=== PATIENT | male | born 1950 | race African-American/Black ===

== ENCOUNTER 2018-06-28 19:34 | Inpatient (IN) | payer MEDICARE ==
[2018-06-28 20:31] LABS: Actual Bicarbonate (HCO3a) 32.9 mEq/L (22-28); Analyzer IN Cardio ER; Base Excess (BEa) 3.6 mEq/L (-2.0 to +3.0); Calcium, Ionized 1.18 mmol/L (1.12-1.30); Carboxyhemoglobin (COHb) 1.7 gm% (0.0-3.0); Hemoglobin (Hb) 9.8 g/dL (14.0-18.0); Potassium - ABG Lab 4.88 mmol/L (3.70-5.30)
[2018-06-28 20:33] LABS: CO2 Tension 83.3 mmHg (35.0-45.0); pH, Arterial 7.22 (7.35-7.45)
[2018-06-28 20:34] LABS: ALV-art Gradient 15.515 (0-20); Puncture Site RRA
[2018-06-28] MEDS ORDERED: cloNIDine 0.1 MG TAB ONE (20:51)
[2018-06-28 21:06] LABS: Troponin I 0.034 ng/mL (< 0.028)
[2018-06-28] MEDS ORDERED: Furosemide 40 MG/4 ML VIAL ONE (21:39)
[2018-06-28] MEDS ORDERED: Ondansetron ODT 4 MG TAB SL PRN (23:26)
[2018-06-28] MEDS ORDERED: Ondansetron PF 4 MG/2 ML Vial IVP PRN (23:26)
[2018-06-28] MEDS ORDERED: Acetaminophen 325 MG TAB PO PRN (23:26)
[2018-06-28 23:36] VITALS: BMI 20.9
[2018-06-29] MEDS ORDERED: Benzonatate 100 MG CAP PO PRN (01:23)
[2018-06-29] MEDS ORDERED: Ondansetron ODT 4 MG TAB PO PRN (01:23)
[2018-06-29] MEDS ORDERED: Ondansetron PF 4 MG/2 ML Vial IVP PRN (01:23)
[2018-06-29] MEDS ORDERED: Dextrose 50% Abboject 50 ML SYRINGE SLOW IVP PRN (01:23)
[2018-06-29] MEDS ORDERED: Diabetic Tussin 200 MG/10 ML UDCUP PO PRN (01:23)
[2018-06-29] MEDS ORDERED: HumaLOG 300 UNITS/3 ML VIAL SC PRN (01:23)
[2018-06-29] MEDS ORDERED: Labetalol HCl 100 MG/20 ML VIAL SLOW IVP PRN (01:23)
[2018-06-29] MEDS ORDERED: hydrALAZINE 20 MG/ML VIAL SLOW IVP PRN (01:23)
[2018-06-29] MEDS ORDERED: Dextrose 5% in Water 1,000 ML IV PRN (01:23)
--- NOTE | 2018-06-29 02:57 | HP ---
PRIMARY CARE PHYSICIAN: . CHIEF COMPLAINT: Altered mental status, having fever and feeling nauseated. HISTORY OF PRESENT ILLNESS: Mr. Palumbo is a 68-year-old gentleman who has a history of COPD, as well as hypertension and diabetes mellitus. He was apparently brought in by family that says that he see med like he was just out of it and was confused. He apparently recently had been treated for pneumon ia. The patient himself says he just got progressively worse. He says that he has been having fever and feeling nauseated and he also endorses having shortness of breath. He said he has had a cough f or the past 5 months, but it just got worse. He says that the cough is productive of clear to someti mes yellow sputum, but no blood. He also denies any chest pain, but does complain of some pain in th e center of his abdomen. He says he has had this for the past month. He says that he has both const ipation and diarrhea. Apparently at some point during the day, he became a bit confused and weak and for this reason, family brought him to the emergency room for evaluation. When he was evaluated in the ER, he was found to be both hypoxic and hypercapnic and acidotic. He had a chest x-ray which gage wed some cardiomegaly and increased pulmonary vascular congestion. He was also hypertensive with the systolics above 190. He was placed on BiPAP and is being admitted to the [facility]. He has received yesika nidine and DuoNebs in the emergency room. REVIEW OF SYSTEMS: All systems are reviewed and are negative except for that mentioned in the histor y of present illness. PAST MEDICAL HISTORY: Significant for chronic respiratory failure secondary to chronic obstructive p ulmonary disease, on home oxygen; chronic respiratory failure secondary to chronic obstructive pulmon bear disease; hypertension; tobacco use; diabetes mellitus; hyperlipidemia, and depression. PAST SURGICAL HISTORY: He has had bilateral above the knee amputations. ALLERGIES: No known drug allergies. SOCIAL HISTORY: He is single. He lives alone. He says he quit smoking a month ago, but prior to at he was smoking a pack a day. He occasionally drinks. He says his niece, Suzan, is the surrogate decision maker and he would like to be a FULL [employer]. FAMILY HISTORY: Significant for diabetes mellitus. MEDICATIONS: As taken from the emergency room records include clonidine 0.2 mg 3 times a day, gabape ntin 400 mg 3 times daily, glipizide, metformin 5/500 twice a day, isosorbide mononitrate 30 mg daily , nifedipine 90 mg daily, potassium chloride 10 mEq daily, Lopressor 25 mg twice a day and duloxetine 60 mg daily. PHYSICAL EXAMINATION: GENERAL: He is alert and oriented to person, place and time. He appears to be in some mild distress due to dyspnea; however, he is currently on BiPAP. He is well-developed and well-nourished. VITAL SIGNS: Blood pressure was 192/84, heart rate 109, respiratory rate of 23, temperature was 98.2 , and O2 sat was 94 on 2 liters. HEENT: Pupils are equal, round, and reactive. Extraocular muscles are intact. His sclerae are anic teric. Throat: There was no erythema, no exudates. NECK: There is no adenopathy, no bruits. LUNGS: He has got some coarse breath sounds bilaterally as well as some faint wheeze and rales at th e base. CARDIOVASCULAR: He had a normal S1, S2. I did not appreciate an S3 or S4. No murmurs, clicks, no r ubs. ABDOMEN: Obese, it is soft. He did have some mild epigastric tenderness. There was no rebound, no guarding, no organomegaly. EXTREMITIES: The stump sites were clear. There was no skin breakdown, no edema. NEUROLOGIC: His cranial nerves II-XII are grossly intact. Muscle strength was intact in the upper e xtremities. SKIN AND INTEGUMENT: There were no skin changes. No rash, no skin breakdown noticeable. LABORATORY DATA: The white blood cell count was 10.0, hemoglobin 9.3, hematocrit is 29.3, platelet c ount was 272. His sodium was 144, potassium 4.9, chloride is 104, CO2 is 30, BUN of 17, creatinine 0 .69, glucose is 81. Troponin was 0.034, natriuretic peptide was 272.3. On his chest x-ray, this is by my reading, he had some mild cardiomegaly, some flattening of the diaphragms and increased pulmona ry vascular markings. EKG also by my reading, he had a right bundle branch block with a heart rate in the 90s. ASSESSMENT AND PLAN: This is a pleasant 68-year-old gentleman that presents to the emergency room wi th an acute metabolic encephalopathy likely with acute on chronic respiratory failure with hypoxemia and hypercapnia. Likely this is multifactorial from a congestive heart failure as well as chronic ob structive pulmonary disease exacerbation. 1. Congestive heart failure exacerbation is unknown type. We will need to continue diuresis as sly rated, bring his blood pressure under control. Check an echocardiogram. 2. Chronic obstructive pulmonary disease exacerbation. Continue DuoNebs and likely place him on an inhaled steroid as well as beta agonist. Pulmonary and Critical Care will be consulted in the a.m. 3. Hypertensive urgency. This could be volume and stress related. We will continue to trend his bl ood pressures. Restart him on his home medications as tolerated as well as p.r.n. medications as nee ded. 4. Diabetes mellitus, type 2. Again, we will continue metformin, glipizide, as well as sliding scal e insulin. 5. Anemia. There are no previous records to compare, this is a normocytic normochromic anemia. We will check iron studies and further recommendations based on these results. 6. The patient will be placed on deep venous thrombosis and gastrointestinal prophylaxis.
[2018-06-29 03:21] LABS: #Lymphocytes 0.8 thou/uL (1.20-3.40); #Monocytes 0.1 thou/uL (0.11-0.59); #Neutrophils 5.5 thou/uL (1.40-6.50); %Eosinophils 0.1 % (0.0-10.0); %Lymphocytes 12.8 % (21.0-51.0); %Monocytes 0.9 % (0.0-10.0); %Neutrophils 86.2 % (42.0-75.0); Hemoglobin 8.9 g/dL (14.0-18.0); Mean Corpuscular HGB CONC 30.3 g/dL (32.0-36.0); Mean Corpuscular Volume 95.6 fL (78.0-98.0); Mean Platelet Volume 7.8 fL (7.4-10.4); Platelet Count 262 thou/uL (130-400); RBC Distribution Width 13.4 % (11.5-14.5); Red Blood Cell (RBC) Count 3.07 mill/uL (4.70-6.10); White Blood Cell (WBC) Count 6.3 thou/uL (4.8-10.8)
[2018-06-29 03:40] LABS: Anion Gap 16 mmol/L (10-20); BUN (Urea Nitrogen) 20 mg/dL (8.4-25.7); Calc. Creatinine Clearance 76 mL/min (70-130); Calcium 9.8 mg/dL (7.8-10.44); Carbon Dioxide 30 mmol/L (23-31); Chloride 100 mmol/L (98-107); Estimated GFR-MDRD Greater than 90; Glucose 111 mg/dL (80-115); Potassium 4.3 mmol/L (3.5-5.1); Sodium 142 mmol/L (136-145)
[2018-06-29 03:41] LABS: Iron 18 ug/dL (65-175); Iron Binding Capacity, Total 288 mcg/dL (261-462)
[2018-06-29 03:45] LABS: Troponin I 0.061 ng/mL (< 0.028)
[2018-06-29] MEDS: Furosemide 40 MG/4 ML VIAL SLOW IVP SCH ×2 (05:33→17:28)
[2018-06-29] MEDS: Acetaminophen 325 MG TAB PO PRN (05:34)
[2018-06-29] MEDS: HumaLOG 300 UNITS/3 ML VIAL SC PRN (06:42)
[2018-06-29 06:46] LABS: Troponin I 0.061 ng/mL (< 0.028)
[2018-06-29] MEDS ORDERED: Cepastat Lozenges 1 LOZ PO PRN (07:30)
[2018-06-29] MEDS ORDERED: Bisacodyl 5 MG TAB PO PRN (07:30)
[2018-06-29] MEDS ORDERED: Senokot S 8.6-50 MG TAB PO PRN (07:30)
[2018-06-29] MEDS ORDERED: Sodium Chloride 0.65% Nasal 44 ML BOT EA NARE PRN (07:30)
[2018-06-29] MEDS ORDERED: Loperamide HCl 2 MG CAP PO PRN (07:30)
[2018-06-29] MEDS ORDERED: Eucerin (Mineral Oil/Petrolatum,White) 30 gm Jar TOP PRN (07:30)
[2018-06-29] MEDS ORDERED: Artificial Tears 18 DROP/0.9 ML EA EYE PRN (07:30)
[2018-06-29] MEDS ORDERED: Loratadine 10 MG TAB PO PRN (07:30)
[2018-06-29] MEDS ORDERED: Prevnar 13-Val Conj/PF 0.5 ML SYRINGE IM ONE (09:00)
[2018-06-29] MEDS: guaiFENesin ER 600 MG TAB PO SCH ×2 (09:49→20:15)
[2018-06-29] MEDS: Saccharomyces boulardii 250 MG CAP PO SCH (09:49)
[2018-06-29] MEDS: Famotidine 20 MG TAB PO SCH ×2 (09:49→20:15)
[2018-06-29] MEDS: Enoxaparin Sodium 40 MG/0.4 ML SYRINGE SC SCH (09:49)
--- NOTE | 2018-06-29 10:06 | PDOC.PN ---
- Subjective Encounter Start Date: 06/29/18 Encounter Start Time: 09:10 -: old records requested/rev pt is awake, on nasal cannula oxygen, no respiratory distress, feels better Patient seen and examined. No new complaints. No overnight events - Objective Resuscitation Status: Resuscitation Status FULL:Full Resuscitation MAR Reviewed: Yes Vital Signs & Weight: Vital Signs (12 hours) Temp Pulse Resp BP Pulse Ox 06/29/18 07:47 100 06/29/18 07:46 99 06/29/18 07:44 92 19 99 06/29/18 07:22 98.6 F 97 16 185/81 H 100 06/29/18 06:51 105 H 06/29/18 06:50 185/81 H 06/29/18 06:18 183/82 H 06/29/18 06:00 191/108 H 06/29/18 04:23 99.3 F 105 H 19 154/87 H 100 06/29/18 00:15 99 100 06/28/18 23:28 172/75 H 06/28/18 23:22 98.3 F 92 19 181/110 H 100 Weight Weight 129 lb 14.4 oz Result Diagrams: 06/29/18 03:12 06/29/18 03:12 Additional Labs: Accuchecks 06/29/18 05:59 POC Glucose 208 H Radiology Reviewed by me: Yes (chest xray reviwed) EKG Reviewed by me: Yes (nsr) Phys Exam - Physical Examination Constitutional: NAD HEENT: PERRLA, moist MMs, sclera anicteric Neck: no JVD, supple Respiratory: no wheezing, no rales, no rhonchi reduced air entry bilateral Cardiovascular: RRR, no significant murmur, no rub Gastrointestinal: soft, non-tender, no distention, positive bowel sounds bilateral BKA Neurological: non-focal Lymphatic: no nodes Psychiatric: normal affect Skin: no rash, normal turgor Dx/Plan (1) Acute metabolic encephalopathy Code(s): G93.41 - METABOLIC ENCEPHALOPATHY Status: Resolved (2) Acute on chronic respiratory failure with hypoxia and hypercapnia Code(s): J96.21 - ACUTE AND CHRONIC RESPIRATORY FAILURE WITH HYPOXIA; J96.22 - ACUTE AND CHRONIC RESPIRATORY FAILURE WITH HYPERCAPNIA Status: Acute (3) CHF exacerbation Code(s): I50.9 - HEART FAILURE, UNSPECIFIED Status: Acute (4) COPD exacerbation Code(s): J44.1 - CHRONIC OBSTRUCTIVE PULMONARY DISEASE W (ACUTE) EXACERBATION Status: Acute (5) Demand ischemia of myocardium Code(s): I24.8 - OTHER FORMS OF ACUTE ISCHEMIC HEART DISEASE Status: Acute (6) Hypertensive urgency Code(s): I16.0 - HYPERTENSIVE URGENCY Status: Acute (7) Anemia, normocytic normochromic Code(s): D64.9 - ANEMIA, UNSPECIFIED Status: Chronic (8) Anxiety and depression Code(s): F41.9 - ANXIETY DISORDER, UNSPECIFIED; F32.9 - MAJOR DEPRESSIVE DISORDER, SINGLE EPISODE, UNSPECIFIED Status: Chronic (9) Diabetes type 2, controlled Code(s): E11.9 - TYPE 2 DIABETES MELLITUS WITHOUT COMPLICATIONS Status: Chronic (10) History of below knee amputation Code(s): Z89.519 - ACQUIRED ABSENCE OF UNSPECIFIED LEG BELOW KNEE Status: Chronic Comment: bilateral (11) Hypertension Code(s): I10 - ESSENTIAL (PRIMARY) HYPERTENSION Status: Chronic - Plan cont current plan of care, continue antibiotics, respiratory therapy * seems stable to transfer to [facility] * he may need cpap/bipap during night time * pulmonary consulted * medication reviewed as below * symptomatic treatment * continue lasix * echo pending result * continue levaquin. * add mucinex * monitor labs Review of Systems - Review of Systems Constitutional: weakness. negative: fever, chills, sweats, malaise, other Eyes: negative: Pain, Vision Change, Conjunctivae Inflammation, Eyelid Inflammation, Redness, Other ENT: negative: Ear Pain, Ear Discharge, Nose Pain, Nose Discharge, Nose Congestion, Mouth Pain, Mouth Swelling, Throat Pain, Throat Swelling, Other Respiratory: Shortness of Breath, SOB with Excertion. negative: Cough, Dry, Hemoptysis, Pleuritic Pain, Sputum, Wheezing Cardiovascular: negative: chest pain, palpitations, orthopnea, paroxysmal nocturnal dyspnea, edema, light headedness, other Gastrointestinal: negative: Nausea, Vomiting, Abdominal Pain, Diarrhea, Constipation, Melena, Hematochezia, Other Genitourinary: negative: Dysuria, Frequency, Incontinence, Hematuria, Retention , Other - Medications/Allergies Allergies/Adverse Reactions: Allergies Allergy/AdvReac Type Severity Reaction Status Date / Time No Known Drug Allergies Allergy Verified 06/29/18 01:34 Medications: Current Medications Acetaminophen (Tylenol) 650 mg PO Q4H PRN PRN Reason: Headache/Fever/Mild Pain (1-3) Last Admin: 06/29/18 05:34 Dose: 650 mg Albuterol/Ipratropium (Duoneb) 3 ml NEB Q4H PRN PRN Reason: SOB &/or Wheezing Albuterol/Ipratropium (Duoneb) 3 ml NEB [id number] [facility] Last Admin: 06/29/18 07:44 Dose: 3 ml Artificial Tears (Tears Naturale) 2 drop EA EYE PRN PRN PRN Reason: Dry Eyes Benzonatate (Tessalon) 100 mg PO Q6H PRN PRN Reason: Cough Bisacodyl (Dulcolax) 10 mg PO DAILYPRN PRN PRN Reason: Constipation Dextrose/Water (Dextrose 50%) 25 gm SLOW IVP PRN PRN PRN Reason: Hypoglycemia Enoxaparin Sodium (Lovenox) 40 mg SC 0900 [facility] Last Admin: 06/29/18 09:49 Dose: 40 mg Famotidine (Pepcid) 20 mg PO BID [facility] Last Admin: 06/29/18 09:49 Dose: 20 mg Furosemide (Lasix) 40 mg SLOW IVP 0600,1400 [facility] Stop: 06/30/18 14:01 Last Admin: 06/29/18 05:33 Dose: 40 mg Glucagon (Glucagon) 1 mg IM PRN PRN PRN Reason: Hypoglycemia Guaifenesin (Robitussin Sf) 200 mg PO Q4H PRN PRN Reason: Cough Guaifenesin (Mucinex) 600 mg PO Q12HR [facility] Last Admin: 06/29/18 09:49 Dose: 600 mg Hydralazine HCl (Apresoline) 10 mg SLOW IVP Q4H PRN PRN Reason: SBP > 180 and HR < 70 Dextrose/Water (D5w) 1,000 mls @ 0 mls/hr IV .Q0M PRN PRN Reason: Hypoglycemia Levofloxacin 750 mg/ Device 150 mls @ 100 mls/hr IVPB Q24HR [facility] Last Admin: 06/29/18 02:07 Dose: 150 mls Insulin Human Lispro (Humalog) 0 units SC .MODERATE SLIDING SC PRN PRN Reason: Moderate Correctional Scale Last Admin: 06/29/18 06:42 Dose: 4 unit Insulin Human Lispro (Humalog) 0 units SC .BEDTIME SLIDING SC PRN PRN Reason: Bedtime Correctional Scale Labetalol HCl (Normodyne) 20 mg SLOW IVP Q4H PRN PRN Reason: SBP > 180 and HR >/= 70 Last Admin: 06/29/18 06:51 Dose: 4 ml Loperamide HCl (Imodium) 2 mg PO PRN PRN PRN Reason: Diarrhea/Loose Stools Loratadine (Claritin) 10 mg PO DAILYPRN PRN PRN Reason: Sinus Symptoms Methylprednisolone Sodium Succinate (Solu-Medrol) 40 mg IVP DAILY [facility] Last Admin: 06/29/18 09:50 Dose: 40 mg Mineral Oil/White Petrolatum (Eucerin Cream) 0 gm TOP BIDPRN PRN PRN Reason: Dry Skin Mometasone Furoate/Formoterol Fumar (Dulera 200 Mcg/5 Mcg Inhaler) 2 puff INH BID-RT [facility] Ondansetron HCl (Zofran Odt) 4 mg PO Q6H PRN PRN Reason: Nausea/Vomiting Ondansetron HCl (Zofran) 4 mg IVP Q6H PRN PRN Reason: Nausea/Vomiting Saccharomyces Boulardii (Florastor) 250 mg PO DAILY [facility] Last Admin: 06/29/18 09:49 Dose: 250 mg Senna/Docusate Sodium (Senokot S) 2 tab PO BID PRN PRN Reason: Constipation Sodium Chloride ([place] Nasal [place] 0.65%) 0 ml EA NARE QIDPRN PRN PRN Reason: Nasal Congestion Throat Lozenges (Cepastat Lozenges) 1 albert PO Q2H PRN PRN Reason: Sore Throat
--- NOTE | 2018-06-29 14:45 | CON ---
DATE OF CONSULTATION: 06/29/2018 HISTORY OF PRESENT ILLNESS: Mr. Palumbo is a 68-year-old gentleman who is followed by a physician over in [place]. He has never been hospitalized here. He does not recall coming to the hospital and he says he cannot remember several days. Apparently, he has chronic obstructive pulmonary disease and was brought to the emergency room in [place] because of confusion. He apparently had a febrile illness. He is unable to give me any of this history, so this is taken from the admission H&P. He also had a chronic cough. Apparently, he was hypertensive in the emergency department and was transferred to the IMU on BiPAP. He is off BiPAP now. PAST MEDICAL HISTORY: 1. Remarkable for COPD, on home oxygen with chronic respiratory failure and hypoxemia. 2. Hypertension. 3. Diabetes. 4. Lipid disorder. 5. Depression. 6. History of bilateral above the knee amputations. SOCIAL HISTORY: He smoked up until a month ago, he was a pack a day smoker. Prior to that, he drinks occasionally. He lives alone. ALLERGIES: He has no drug allergies. FAMILY HISTORY: Positive for diabetes. REVIEW OF SYSTEMS: Ten point review of systems completed, otherwise negative. MEDICATIONS PRIOR TO ADMISSION: Catapres, gabapentin, glipizide, metformin, isosorbide mononitrate, Nifedipine, potassium, Lopressor 25 mg twice a day, duloxetine. PHYSICAL EXAMINATION: GENERAL: Mr. Palumbo is a 68-year-old gentleman VITAL SIGNS: Blood pressure 170/66, heart rate 89, respiratory rates in the 20s , oximetry is 100% on 2 liters. HEENT: Pupils are equal. Sclerae are anicteric. NECK: Supple. There is no lymphadenopathy. LUNGS: Remarkable for faint wheezes. HEART: Regular rhythm. S1 and S2 are normal. ABDOMEN: Soft and nontender. EXTREMITIES: His amputation site is well healed. LABORATORY DATA: White count 6.3, hemoglobin 8.9, platelets 262. Electrolytes are normal. Chest radiograph is remarkable for cardiomegaly, no infiltrates. IMPRESSION: Chronic obstructive pulmonary disease exacerbation with a febrile illness. PLAN: Continue supportive care, nebulizer treatments, steroids. His antibiotics could be switched to p.o. He appears comfortable at this time. This is a 50 minute consult, with greater than 50% time spent in the unit coordinating care. HAI
[2018-06-29] MEDS: Mometasone/Formoterol 120 PUFF INHALER INH SCH (18:53)
[2018-06-30] MEDS: Mometasone/Formoterol 120 PUFF INHALER INH SCH ×2 (05:31→18:56)
[2018-06-30] MEDS: Furosemide 40 MG/4 ML VIAL SLOW IVP SCH ×2 (06:07→14:04)
[2018-06-30] MEDS ORDERED: Simethicone Chewable 80 MG TAB PO PRN (09:37)
[2018-06-30] MEDS ORDERED: Fleet Enema 133 ML BOT PR SCH (09:45)
--- NOTE | 2018-06-30 09:49 | PDOC.PN ---
- Subjective Encounter Start Date: 06/30/18 Encounter Start Time: 07:20 Patient seen and examined. No new complaints. No overnight events pt has No BM for 4 days and c/o abdominal discomfort - Objective Resuscitation Status: Resuscitation Status FULL:Full Resuscitation MAR Reviewed: Yes Vital Signs & Weight: Vital Signs (12 hours) Temp Pulse Resp BP Pulse Ox 06/30/18 08:00 98 06/30/18 05:31 110 H 20 97 06/30/18 04:00 98.9 F 87 24 H 163/92 H 98 06/30/18 00:28 86 16 98 06/30/18 00:00 99.2 F 96 27 H 175/89 H 94 L Weight Weight 126 lb 14.4 oz I&O: 06/29/18 06/30/18 07/01/18 06:59 06:59 06:59 Intake Total 440 Balance 440 Result Diagrams: 06/29/18 03:12 06/29/18 03:12 Additional Labs: Accuchecks 06/30/18 06/29/18 06/29/18 06:09 20:00 16:34 POC Glucose 134 H 223 H 161 H 06/29/18 10:25 POC Glucose 146 H Radiology Reviewed by me: Yes (xray abdomen reviewed) EKG Reviewed by me: Yes (nsr) Phys Exam - Physical Examination Constitutional: NAD HEENT: PERRLA, moist MMs, sclera anicteric Neck: no JVD, supple Respiratory: no wheezing, no rales, no rhonchi reduced air entry Cardiovascular: RRR, no significant murmur, no rub Gastrointestinal: soft, no distention, positive bowel sounds bilateral BKA Neurological: non-focal, normal sensation, moves all 4 limbs Lymphatic: no nodes Psychiatric: normal affect, A&O x 3 Skin: no rash, normal turgor Dx/Plan (1) Acute metabolic encephalopathy Code(s): G93.41 - METABOLIC ENCEPHALOPATHY Status: Resolved (2) Acute on chronic respiratory failure with hypoxia and hypercapnia Code(s): J96.21 - ACUTE AND CHRONIC RESPIRATORY FAILURE WITH HYPOXIA; J96.22 - ACUTE AND CHRONIC RESPIRATORY FAILURE WITH HYPERCAPNIA Status: Acute (3) CHF exacerbation Code(s): I50.9 - HEART FAILURE, UNSPECIFIED Status: Acute Qualifiers: Heart failure type: diastolic Qualified Code(s): I50.33 - Acute on chronic diastolic (congestive) heart failure (4) COPD exacerbation Code(s): J44.1 - CHRONIC OBSTRUCTIVE PULMONARY DISEASE W (ACUTE) EXACERBATION Status: Acute (5) Demand ischemia of myocardium Code(s): I24.8 - OTHER FORMS OF ACUTE ISCHEMIC HEART DISEASE Status: Acute (6) Hypertensive urgency Code(s): I16.0 - HYPERTENSIVE URGENCY Status: Resolved (7) Anemia, normocytic normochromic Code(s): D64.9 - ANEMIA, UNSPECIFIED Status: Chronic (8) Anxiety and depression Code(s): F41.9 - ANXIETY DISORDER, UNSPECIFIED; F32.9 - MAJOR DEPRESSIVE DISORDER, SINGLE EPISODE, UNSPECIFIED Status: Chronic (9) Diabetes type 2, controlled Code(s): E11.9 - TYPE 2 DIABETES MELLITUS WITHOUT COMPLICATIONS Status: Chronic (10) History of below knee amputation Code(s): Z89.519 - ACQUIRED ABSENCE OF UNSPECIFIED LEG BELOW KNEE Status: Chronic Comment: bilateral (11) Hypertension Code(s): I10 - ESSENTIAL (PRIMARY) HYPERTENSION Status: Chronic - Plan cont current plan of care, continue antibiotics, respiratory therapy * fleet enema today * simethicone prn * continue lasix * continue levaquin and respiratory therapy * ok to transfer to medical * medication reviewed as below * symptomatic treatment. Review of Systems - Review of Systems Constitutional: negative: fever, chills, sweats, weakness, malaise, other Eyes: negative: Pain, Vision Change, Conjunctivae Inflammation, Eyelid Inflammation, Redness, Other ENT: negative: Ear Pain, Ear Discharge, Nose Pain, Nose Discharge, Nose Congestion, Mouth Pain, Mouth Swelling, Throat Pain, Throat Swelling, Other Respiratory: SOB with Excertion. negative: Cough, Dry, Shortness of Breath, Hemoptysis, Pleuritic Pain, Sputum, Wheezing Cardiovascular: negative: chest pain, palpitations, orthopnea, paroxysmal nocturnal dyspnea, edema, light headedness, other Gastrointestinal: Abdominal Pain, Constipation. negative: Nausea, Vomiting, Diarrhea, Melena, Hematochezia, Other Genitourinary: negative: Dysuria, Frequency, Incontinence, Hematuria, Retention , Other Musculoskeletal: negative: Neck Pain, Shoulder Pain, Arm Pain, Back Pain, Hand Pain, Leg Pain, Foot Pain, Other - Medications/Allergies Allergies/Adverse Reactions: Allergies Allergy/AdvReac Type Severity Reaction Status Date / Time No Known Drug Allergies Allergy Verified 06/29/18 01:34 Medications: Current Medications Acetaminophen (Tylenol) 650 mg PO Q4H PRN PRN Reason: Headache/Fever/Mild Pain (1-3) Last Admin: 06/29/18 05:34 Dose: 650 mg Albuterol/Ipratropium (Duoneb) 3 ml NEB Q4H PRN PRN Reason: SOB &/or Wheezing Albuterol/Ipratropium (Duoneb) 3 ml NEB [id number] [facility] Last Admin: 06/30/18 05:31 Dose: 3 ml Artificial Tears (Tears Naturale) 2 drop EA EYE PRN PRN PRN Reason: Dry Eyes Benzonatate (Tessalon) 100 mg PO Q6H PRN PRN Reason: Cough Bisacodyl (Dulcolax) 10 mg PO DAILYPRN PRN PRN Reason: Constipation Dextrose/Water (Dextrose 50%) 25 gm SLOW IVP PRN PRN PRN Reason: Hypoglycemia Enoxaparin Sodium (Lovenox) 40 mg SC 0900 [facility] Last Admin: 06/29/18 09:49 Dose: 40 mg Famotidine (Pepcid) 20 mg PO BID [facility] Last Admin: 06/29/18 20:15 Dose: 20 mg Furosemide (Lasix) 40 mg SLOW IVP 0600,1400 [facility] Stop: 06/30/18 14:01 Last Admin: 06/30/18 06:07 Dose: 40 mg Glucagon (Glucagon) 1 mg IM PRN PRN PRN Reason: Hypoglycemia Guaifenesin (Robitussin Sf) 200 mg PO Q4H PRN PRN Reason: Cough Last Admin: 06/30/18 06:07 Dose: 200 mg Guaifenesin (Mucinex) 600 mg PO Q12HR [facility] Last Admin: 06/29/18 20:15 Dose: 600 mg Hydralazine HCl (Apresoline) 10 mg SLOW IVP Q4H PRN PRN Reason: SBP > 180 and HR < 70 Dextrose/Water (D5w) 1,000 mls @ 0 mls/hr IV .Q0M PRN PRN Reason: Hypoglycemia Levofloxacin 750 mg/ Device 150 mls @ 100 mls/hr IVPB Q24HR [facility] Last Admin: 06/30/18 02:07 Dose: 150 mls Insulin Human Lispro (Humalog) 0 units SC .MODERATE SLIDING SC PRN PRN Reason: Moderate Correctional Scale Last Admin: 06/29/18 06:42 Dose: 4 unit Insulin Human Lispro (Humalog) 0 units SC .BEDTIME SLIDING SC PRN PRN Reason: Bedtime Correctional Scale Last Admin: 06/29/18 20:54 Dose: 2 unit Labetalol HCl (Normodyne) 20 mg SLOW IVP Q4H PRN PRN Reason: SBP > 180 and HR >/= 70 Last Admin: 06/29/18 06:51 Dose: 4 ml Loperamide HCl (Imodium) 2 mg PO PRN PRN PRN Reason: Diarrhea/Loose Stools Loratadine (Claritin) 10 mg PO DAILYPRN PRN PRN Reason: Sinus Symptoms Methylprednisolone Sodium Succinate (Solu-Medrol) 40 mg IVP DAILY [facility] Last Admin: 06/29/18 09:50 Dose: 40 mg Mineral Oil/White Petrolatum (Eucerin Cream) 0 gm TOP BIDPRN PRN PRN Reason: Dry Skin Mometasone Furoate/Formoterol Fumar (Dulera 200 Mcg/5 Mcg Inhaler) 2 puff INH BID-RT [facility] Last Admin: 06/30/18 05:31 Dose: 2 puff Ondansetron HCl (Zofran Odt) 4 mg PO Q6H PRN PRN Reason: Nausea/Vomiting Ondansetron HCl (Zofran) 4 mg IVP Q6H PRN PRN Reason: Nausea/Vomiting Saccharomyces Boulardii (Florastor) 250 mg PO DAILY [facility] Last Admin: 06/29/18 09:49 Dose: 250 mg Senna/Docusate Sodium (Senokot S) 2 tab PO BID PRN PRN Reason: Constipation Simethicone (Mylicon Chewable) 80 mg PO PCHS PRN PRN Reason: Gas Pain Sodium Biphosphate/Sodium Phosphate (Fleet Enema) 133 ml [place] ONE [facility] Sodium Chloride ([place] Nasal [place] 0.65%) 0 ml EA NARE QIDPRN PRN PRN Reason: Nasal Congestion Throat Lozenges (Cepastat Lozenges) 1 albert PO Q2H PRN PRN Reason: Sore Throat
--- NOTE | 2018-06-30 09:53 | RAD ---
PORTABLE SUPINE KUB: Date: 06-30-18 Comparison: None. History: Abdominal pain. FINDINGS: There is atherosclerotic calcification with associated stent material overlying the pelvis. Clips in the right upper quadrant suggests prior cholecystectomy. Supine imaging is provided, limiting assessm ent for free intraperitoneal air and small bowel obstruction. The bowel gas pattern appears nonobstru cted. There are scattered degenerative changes involving the imaged spine. IMPRESSION: Nonobstructed bowel gas pattern. POS: [facility]
[2018-06-30] MEDS: guaiFENesin ER 600 MG TAB PO SCH ×2 (09:58→20:40)
[2018-06-30] MEDS: Enoxaparin Sodium 40 MG/0.4 ML SYRINGE SC SCH (09:58)
[2018-06-30] MEDS: Saccharomyces boulardii 250 MG CAP PO SCH (09:58)
[2018-06-30] MEDS: Famotidine 20 MG TAB PO SCH ×2 (09:58→20:40)
--- NOTE | 2018-06-30 12:37 | PRG ---
DATE OF SERVICE: 06/30/2018 Mr. Palumbo only complaint is abdominal discomfort. He has not had a bowel movement in 5-6 days by hi s report. PHYSICAL EXAMINATION: VITAL SIGNS: Heart rate is 87 to 110, respiratory rate is 20, oximetry is 97 on 2 liters, blood pres sure 163/92. LUNGS: Clear. CARDIOVASCULAR: Regular rhythm. ABDOMEN: Nontender, even to deep palpation. EXTREMITIES: Without asymmetry. IMPRESSION: 1. Chronic obstructive pulmonary disease, clinically stable. 2. Constipation. 3. Hypertension. 4. Status post amputation of both lower extremities. PLAN: Continue supportive care. Abdominal film was done today, which showed no free air, no signs o f an ileus. Dulcolax was ordered and if he gets no relief with this a Fleets enema probably would be the next devin p. He is stable to move out of the Intermediate Care Unit.
[2018-07-01] MEDS: Mometasone/Formoterol 120 PUFF INHALER INH SCH ×2 (06:19→18:27)
[2018-07-01 07:51] LABS: #Basophils 0.1 thou/uL (0.0-0.2); #Lymphocytes 1.6 thou/uL (1.20-3.40); #Monocytes 0.9 thou/uL (0.11-0.59); #Neutrophils 5.9 thou/uL (1.40-6.50); %Basophils 0.8 % (0.0-1.0); %Eosinophils 0.3 % (0.0-10.0); %Lymphocytes 18.7 % (21.0-51.0); %Neutrophils 69.2 % (42.0-75.0); Hemoglobin 10.2 g/dL (14.0-18.0); Mean Corpuscular HGB CONC 31.1 g/dL (32.0-36.0); Mean Corpuscular Hemoglobin 28.6 pg (27.0-31.0); Mean Corpuscular Volume 92.1 fL (78.0-98.0); Platelet Count 309 thou/uL (130-400); RBC Distribution Width 13.6 % (11.5-14.5); Red Blood Cell (RBC) Count 3.57 mill/uL (4.70-6.10); White Blood Cell (WBC) Count 8.5 thou/uL (4.8-10.8)
[2018-07-01 08:14] LABS: BUN (Urea Nitrogen) 17 mg/dL (8.4-25.7); Calc. Creatinine Clearance 59 mL/min (70-130); Calcium 9.9 mg/dL (7.8-10.44); Estimated GFR-MDRD Greater than 90; Glucose 107 mg/dL (80-115)
[2018-07-01] MEDS: guaiFENesin ER 600 MG TAB PO SCH ×2 (08:21→20:42)
[2018-07-01] MEDS: Saccharomyces boulardii 250 MG CAP PO SCH (08:22)
[2018-07-01] MEDS: Famotidine 20 MG TAB PO SCH ×2 (08:22→20:42)
[2018-07-01] MEDS: Enoxaparin Sodium 40 MG/0.4 ML SYRINGE SC SCH (08:22)
[2018-07-01 08:23] LABS: Anion Gap 22 mmol/L (10-20); Carbon Dioxide 32 mmol/L (23-31); Chloride 92 mmol/L (98-107); Potassium 3.6 mmol/L (3.5-5.1); Sodium 142 mmol/L (136-145)
--- NOTE | 2018-07-01 09:47 | PDOC.PN ---
- Subjective Encounter Start Date: 07/01/18 Encounter Start Time: 08:55 Patient seen and examined. No new complaints. No overnight events - Objective Resuscitation Status: Resuscitation Status FULL:Full Resuscitation MAR Reviewed: Yes Vital Signs & Weight: Vital Signs (12 hours) Temp Pulse Resp BP Pulse Ox 07/01/18 07:40 97.5 F L 99 16 167/87 H 96 07/01/18 06:19 93 16 98 07/01/18 06:18 93 16 98 07/01/18 04:06 98.2 F 92 16 183/82 H 98 07/01/18 00:17 98.5 F 101 H 18 162/82 H 100 07/01/18 00:14 16 Weight Weight 121 lb 7 oz I&O: 06/30/18 07/01/18 07/02/18 06:59 06:59 06:59 Intake Total 440 390 Balance 440 390 Result Diagrams: 07/01/18 07:30 07/01/18 07:30 Additional Labs: Accuchecks 07/01/18 06/30/18 06/30/18 04:14 19:33 15:41 POC Glucose 118 H 139 H 190 H 06/30/18 12:47 POC Glucose 203 H Phys Exam - Physical Examination Constitutional: NAD HEENT: PERRLA, moist MMs, sclera anicteric Neck: no JVD, supple Respiratory: no wheezing, no rales, no rhonchi Cardiovascular: RRR, no significant murmur, no rub Gastrointestinal: soft, non-tender, no distention, positive bowel sounds bilateral BKA Neurological: non-focal Lymphatic: no nodes Psychiatric: normal affect, A&O x 3 Skin: no rash, normal turgor Dx/Plan (1) Acute metabolic encephalopathy Code(s): G93.41 - METABOLIC ENCEPHALOPATHY Status: Resolved (2) Acute on chronic respiratory failure with hypoxia and hypercapnia Code(s): J96.21 - ACUTE AND CHRONIC RESPIRATORY FAILURE WITH HYPOXIA; J96.22 - ACUTE AND CHRONIC RESPIRATORY FAILURE WITH HYPERCAPNIA Status: Acute (3) CHF exacerbation Code(s): I50.9 - HEART FAILURE, UNSPECIFIED Status: Acute Qualifiers: Heart failure type: diastolic Qualified Code(s): I50.33 - Acute on chronic diastolic (congestive) heart failure (4) COPD exacerbation Code(s): J44.1 - CHRONIC OBSTRUCTIVE PULMONARY DISEASE W (ACUTE) EXACERBATION Status: Acute (5) Demand ischemia of myocardium Code(s): I24.8 - OTHER FORMS OF ACUTE ISCHEMIC HEART DISEASE Status: Acute (6) Hypertensive urgency Code(s): I16.0 - HYPERTENSIVE URGENCY Status: Resolved (7) Anemia, normocytic normochromic Code(s): D64.9 - ANEMIA, UNSPECIFIED Status: Chronic (8) Anxiety and depression Code(s): F41.9 - ANXIETY DISORDER, UNSPECIFIED; F32.9 - MAJOR DEPRESSIVE DISORDER, SINGLE EPISODE, UNSPECIFIED Status: Chronic (9) Diabetes type 2, controlled Code(s): E11.9 - TYPE 2 DIABETES MELLITUS WITHOUT COMPLICATIONS Status: Chronic (10) History of below knee amputation Code(s): Z89.519 - ACQUIRED ABSENCE OF UNSPECIFIED LEG BELOW KNEE Status: Chronic Comment: bilateral (11) Hypertension Code(s): I10 - ESSENTIAL (PRIMARY) HYPERTENSION Status: Chronic - Plan cont current plan of care * medication reviewed as below * symptomatic treatment * pt has improvement * will plan for discharge tomorrow. Review of Systems - Review of Systems Eyes: negative: Pain, Vision Change, Conjunctivae Inflammation, Eyelid Inflammation, Redness, Other ENT: negative: Ear Pain, Ear Discharge, Nose Pain, Nose Discharge, Nose Congestion, Mouth Pain, Mouth Swelling, Throat Pain, Throat Swelling, Other Respiratory: negative: Cough, Dry, Shortness of Breath, Hemoptysis, SOB with Excertion, Pleuritic Pain, Sputum, Wheezing Cardiovascular: negative: chest pain, palpitations, orthopnea, paroxysmal nocturnal dyspnea, edema, light headedness, other Gastrointestinal: negative: Nausea, Vomiting, Abdominal Pain, Diarrhea, Constipation, Melena, Hematochezia, Other Genitourinary: negative: Dysuria, Frequency, Incontinence, Hematuria, Retention , Other Skin: negative: Rash, Lesions, Jet, Bruising, Other - Medications/Allergies Allergies/Adverse Reactions: Allergies Allergy/AdvReac Type Severity Reaction Status Date / Time No Known Drug Allergies Allergy Verified 06/29/18 01:34 Medications: Current Medications Acetaminophen (Tylenol) 650 mg PO Q4H PRN PRN Reason: Headache/Fever/Mild Pain (1-3) Last Admin: 06/29/18 05:34 Dose: 650 mg Albuterol/Ipratropium (Duoneb) 3 ml NEB Q4H PRN PRN Reason: SOB &/or Wheezing Albuterol/Ipratropium (Duoneb) 3 ml NEB [id number] [facility] Last Admin: 07/01/18 06:18 Dose: 3 ml Artificial Tears (Tears Naturale) 2 drop EA EYE PRN PRN PRN Reason: Dry Eyes Benzonatate (Tessalon) 100 mg PO Q6H PRN PRN Reason: Cough Bisacodyl (Dulcolax) 10 mg PO DAILYPRN PRN PRN Reason: Constipation Last Admin: 06/30/18 09:57 Dose: 10 mg Dextrose/Water (Dextrose 50%) 25 gm SLOW IVP PRN PRN PRN Reason: Hypoglycemia Enoxaparin Sodium (Lovenox) 40 mg SC 0900 [facility] Last Admin: 07/01/18 08:22 Dose: 40 mg Famotidine (Pepcid) 20 mg PO BID [facility] Last Admin: 07/01/18 08:22 Dose: 20 mg Glucagon (Glucagon) 1 mg IM PRN PRN PRN Reason: Hypoglycemia Guaifenesin (Robitussin Sf) 200 mg PO Q4H PRN PRN Reason: Cough Last Admin: 06/30/18 06:07 Dose: 200 mg Guaifenesin (Mucinex) 600 mg PO Q12HR [facility] Last Admin: 07/01/18 08:21 Dose: 600 mg Hydralazine HCl (Apresoline) 10 mg SLOW IVP Q4H PRN PRN Reason: SBP > 180 and HR < 70 Dextrose/Water (D5w) 1,000 mls @ 0 mls/hr IV .Q0M PRN PRN Reason: Hypoglycemia Levofloxacin 750 mg/ Device 150 mls @ 100 mls/hr IVPB Q24HR [facility] Last Admin: 07/01/18 02:06 Dose: 150 mls Insulin Human Lispro (Humalog) 0 units SC .MODERATE SLIDING SC PRN PRN Reason: Moderate Correctional Scale Last Admin: 06/29/18 06:42 Dose: 4 unit Insulin Human Lispro (Humalog) 0 units SC .BEDTIME SLIDING SC PRN PRN Reason: Bedtime Correctional Scale Last Admin: 06/29/18 20:54 Dose: 2 unit Labetalol HCl (Normodyne) 20 mg SLOW IVP Q4H PRN PRN Reason: SBP > 180 and HR >/= 70 Last Admin: 06/29/18 06:51 Dose: 4 ml Loperamide HCl (Imodium) 2 mg PO PRN PRN PRN Reason: Diarrhea/Loose Stools Loratadine (Claritin) 10 mg PO DAILYPRN PRN PRN Reason: Sinus Symptoms Methylprednisolone Sodium Succinate (Solu-Medrol) 40 mg IVP DAILY [facility] Last Admin: 07/01/18 08:19 Dose: 40 mg Mineral Oil/White Petrolatum (Eucerin Cream) 0 gm TOP BIDPRN PRN PRN Reason: Dry Skin Mometasone Furoate/Formoterol Fumar (Dulera 200 Mcg/5 Mcg Inhaler) 2 puff INH BID-RT [facility] Last Admin: 07/01/18 06:19 Dose: 2 puff Ondansetron HCl (Zofran Odt) 4 mg PO Q6H PRN PRN Reason: Nausea/Vomiting Ondansetron HCl (Zofran) 4 mg IVP Q6H PRN PRN Reason: Nausea/Vomiting Last Admin: 07/01/18 06:11 Dose: 4 mg Saccharomyces Boulardii (Florastor) 250 mg PO DAILY [facility] Last Admin: 07/01/18 08:22 Dose: 250 mg Senna/Docusate Sodium (Senokot S) 2 tab PO BID PRN PRN Reason: Constipation Simethicone (Mylicon Chewable) 80 mg PO PCHS PRN PRN Reason: Gas Pain Sodium Chloride ([place] Nasal [place] 0.65%) 0 ml EA NARE QIDPRN PRN PRN Reason: Nasal Congestion Throat Lozenges (Cepastat Lozenges) 1 albert PO Q2H PRN PRN Reason: Sore Throat
[2018-07-01] MEDS: Acetaminophen 325 MG TAB PO PRN (12:29)
--- NOTE | 2018-07-01 13:03 | PRG ---
DATE OF SERVICE: 07/01/2018 SUBJECTIVE: Mr. Palumbo says he is feeling better. He is tentatively scheduled to be discharged soon . OBJECGIVE: VITALS: He is afebrile, heart rate is 99, respiratory rate 16, oximetry is 96, blood pressure 167/87 . LUNGS: Clear. ABDOMEN: He had a good bowel movement yesterday. IMPRESSION: 1. Chronic obstructive pulmonary disease. 2. Constipation. 3. Double amputee. 4. Sleep apnea. He says his CPAP was ruined with some type of mold exposure. He has never had anot her sleep study. He will need to see me in the office to schedule sleep study and I will be happy to follow up his [employer] D, explained this to his family and gave them my phone number. He is stable to be discharged home today in my opinion.
[2018-07-01] MEDS: HumaLOG 300 UNITS/3 ML VIAL SC PRN (17:31)
[2018-07-02] MEDS: Mometasone/Formoterol 120 PUFF INHALER INH SCH (06:44)
[2018-07-02 07:21] VITALS: BP 182/75; TEMP 98.4
[2018-07-02] MEDS: guaiFENesin ER 600 MG TAB PO SCH (08:08)
[2018-07-02] MEDS: Famotidine 20 MG TAB PO SCH (08:08)
[2018-07-02] MEDS: Saccharomyces boulardii 250 MG CAP PO SCH (08:08)
[2018-07-02] MEDS: Enoxaparin Sodium 40 MG/0.4 ML SYRINGE SC SCH (08:09)
--- NOTE | 2018-07-02 10:42 | DIS ---
PRIMARY CARE PHYSICIAN: Dr. Meyer DATE OF ADMISSION: 06/28/2018 DATE OF DISCHARGE: 07/02/2018 DISCHARGE DISPOSITION: Home. PRIMARY DISCHARGE DIAGNOSES: 1. Acute on chronic respiratory failure with hypoxia and hypercapnia. 2. Acute on chronic ____ C diastolic congestive heart failure exacerbation. 3. Chronic obstructive pulmonary disease exacerbation. 4. Demand ischemia of myocardium. 5. Acute metabolic encephalopathy on admission, resolved. 6. Hypertensive urgency on admission, resolved. SECONDARY DISCHARGE DIAGNOSES: Hypertension, history of bilateral below knee amputations, normocytic normochromic anemia, anxiety, depression, chronic obstructive pulmonary disease, chronic respiratory failure with hypoxia and hypercapnia, chronic diastolic heart failure. PRIMARY PROCEDURE/OPERATION: None. RADIOLOGICAL INVESTIGATION: Echocardiography showed diastolic dysfunction. SIGNIFICANT LABORATORIES: WBC 8.5, hemoglobin 10.2, platelets 309. Sodium 142, potassium 3.6, BUN 1 7, creatinine 0.93, calcium 9.9. BNP 342. Stool for guaiac negative. DISCHARGE MEDICATIONS: Aspirin 81 mg p.o. daily, Lipitor 40 mg p.o. daily, clonidine 0.2 mg p.o. t.i .d., Cymbalta 60 mg p.o. daily, gabapentin 400 mg p.o. t.i.d., glipizide with metformin 5/500 one tab let p.o. daily in the morning, Imdur 30 mg p.o. daily, Lopressor 25 mg p.o. b.i.d., Singulair 10 mg p .o. daily, nifedipine 90 mg p.o. daily, potassium chloride 10 mEq p.o. b.i.d., Lasix 20 mg p.o. daily , Levaquin 500 mg p.o. daily for 5 more days, Dulera 2 puffs inhalation b.i.d., MiraLax 17 grams p.o. daily, prednisone 20 mg p.o. b.i.d. for 5 days, Florastor 250 mg p.o. daily. CONTRAINDICATIONS: None. CODE STATUS: FULL CODE. INPATIENT CONSULTANTS: Dr. Seo was following while in hospital. TEST RESULTS PENDING ON DISCHARGE: None. ALLERGIES: No known drug allergy. DISCHARGE PLAN: Post hospital, the patient will follow up with primary care physician on 07/05/2018 at 2:00 p.m. Patient will follow up with Dr. Seo as instructed. HOSPITAL COURSE: A 68-year-old male with above-mentioned medical problems who was admitted by Dr. Jaun hester. Please see her H&P for further detail. The patient was admitted for increasing shortness of b reath. On admission, he was having acute on chronic respiratory failure with hypoxia and hypercapnia . He was also altered because of metabolic etiology. He was also having elevated BNP and his presen tation was also consistent with congestive heart failure exacerbation. Echocardiography showed diast olic dysfunction. The patient was treated with BiPAP initially and subsequently BiPAP he did not req uire longer and at that point, we transferred him from [facility] to medical floor. We treated him with La six as well. The patient remained stable and he was doing very well while in hospital. He had const ipation problems that was resolved with Fleet enema. We adjusted above-mentioned medication while in hospital. This patient is up to his baseline level. Pulmonary cleared him for discharge. The patient also wants to go home today. We are arranging tra nsportation to go home. The patient is seen and examined at bedside today. All review of system reviewed with him and negati ve. PHYSICAL EXAMINATION: VITAL SIGNS: Currently, temperature 98.4, pulse 104, respiratory rate 18, temperature 98.4, saturati on 97% on 2 liter nasal cannula, blood pressure 182/75, weight 123 pounds. GENERAL: The patient is currently alert, awake, no obvious acute distress. HEAD: Normocephalic, atraumatic. EYES: Pupils round, reactive to light. Extraocular muscle intact. ENT: Oropharynx within normal limits. Moist mucous membranes. NECK: Supple, no JVD, no thyromegaly, no carotid bruit. LUNGS: Clear to auscultation without any rhonchi or rales. CARDIAC: S1, S2 regular without any significant murmur. ABDOMEN: Soft and benign. EXTREMITIES: Bilateral below knee amputation noted. Total time spent on discharge day 31 minutes.
[2018-07-02] MEDS: HumaLOG 300 UNITS/3 ML VIAL SC PRN (12:24)
--- NOTE | 2018-07-02 15:45 | EKG ---
Test Reason : COPD EXAC Blood Pressure : / mmHG Vent. Rate : 094 BPM Atrial Rate : 094 BPM P-R Int : 148 ms QRS Dur : 156 ms QT Int : 378 ms P-R-T Axes : 067 165 056 degrees QTc Int : 472 ms Normal sinus rhythm Right bundle branch block Abnormal ECG Confirmed by MARILYN WILCOX DO ([id number]), manuscript editor STEFANO BRANHAM ([id number]) on 07/02/2018 3:45:07 PM Referred By: Confirmed By:MARILYN WILCOX DO
== END 2018-07-02 13:49 | disposition home health service (06) | DRG 291 ==
LOC: ERS 19:34 → ERHOLD 20:15 → IMCU/EMU 23:15 → T4-B 06-30 15:17
PROVIDERS: ADMIT Internal Medicine Infectious Disease; ATTEND Internal Medicine Infectious Disease
PROC: 5A09357 Assistance with Respiratory Ventilation, Less than 24 Consecutive Hours, Continuous Positive Airway Pressure (ICD-10-PCS; principal; 2018-06-28)
DX: I11.0 Hypertensive heart disease with heart failure (principal); J96.22 Acute and chronic respiratory failure with hypercapnia; G93.41 Metabolic encephalopathy; J96.21 Acute and chronic respiratory failure with hypoxia; J44.1 Chronic obstructive pulmonary disease with (acute) exacerbation; I24.8 Other forms of acute ischemic heart disease; I50.33 Acute on chronic diastolic (congestive) heart failure; E11.9 Type 2 diabetes mellitus without complications; Z99.81 Dependence on supplemental oxygen; E78.5 Hyperlipidemia, unspecified; F17.210 Nicotine dependence, cigarettes, uncomplicated; F32.9 Major depressive disorder, single episode, unspecified; I16.0 Hypertensive urgency; D64.9 Anemia, unspecified; F41.9 Anxiety disorder, unspecified; K59.00 Constipation, unspecified; G47.30 Sleep apnea, unspecified; Z89.512 Acquired absence of left leg below knee; Z89.511 Acquired absence of right leg below knee; Z83.3 Family history of diabetes mellitus
CPT/HCPCS: 36415; 36416; 74018; 80048; 82274; 82728; 82805; 83540; 83550; 83880; 84484; 85025; 90471; 90670; 93005; 93306; 94640; 94660; 94760; 96374; G0009; J1650; J1940; J1956; J2405; J2920; J7620; Q0162

== ENCOUNTER 2018-07-27 19:33 | Observation (INO) | payer MEDICARE ==
[2018-07-27 20:31] LABS: ALT (SGPT) 13 U/L (8-55); AST (SGOT) 17 U/L (5-34); Albumin 3.7 g/dL (3.4-4.8); Alkaline Phosphatase 41 U/L (40-150); Anion Gap 15 mmol/L (10-20); BUN (Urea Nitrogen) 31 mg/dL (8.4-25.7); Bilirubin, Total 0.2 mg/dL (0.2-1.2); Calc. Creatinine Clearance 0 mL/min (70-130); Calcium 9.6 mg/dL (7.8-10.44); Carbon Dioxide 31 mmol/L (23-31); Chloride 101 mmol/L (98-107); Estimated GFR-MDRD Greater than 90; Globulin 3.6 g/dL (2.4-3.5); Glucose 84 mg/dL (80-115); Potassium 4.9 mmol/L (3.5-5.1); Protein, Total 7.3 g/dL (5.8-8.1); Sodium 142 mmol/L (136-145)
[2018-07-27 20:56] LABS: CKMB 2.2 ng/mL (0-6.6)
[2018-07-27] MEDS ORDERED: Zolpidem Tartrate 5 MG TAB PO PRN (21:23)
[2018-07-27] MEDS ORDERED: Ondansetron PF 4 MG/2 ML Vial IVP PRN (21:23)
[2018-07-27] MEDS ORDERED: Ondansetron ODT 4 MG TAB PO PRN (21:23)
[2018-07-27] MEDS ORDERED: Acetaminophen 325 MG TAB PO PRN (21:23)
--- NOTE | 2018-07-27 21:26 | CT ---
BRAIN CT WITHOUT IV CONTRAST; 07/27/18 HISTORY: 68-year-old male with history of altered mental status. The head is cocked to the side. There is some mild atrophy. No focal mass or midline shift. No intra or extra-axial hemorrhage. Mild chronic white matter ischemic change. IMPRESSION: No significant acute intracranial process. No mass or bleed. POS: [facility]
[2018-07-27] MEDS ORDERED: Dextrose 5% in Water 1,000 ML IV PRN (21:29)
[2018-07-27] MEDS ORDERED: Dextrose 50% Abboject 50 ML SYRINGE SLOW IVP PRN (21:29)
[2018-07-27] MEDS ORDERED: HumaLOG 300 UNITS/3 ML VIAL SC PRN (21:29)
[2018-07-27] MEDS: Sodium Chloride 0.9% 1,000 ML IV SCH (23:01)
[2018-07-27 23:11] VITALS: BMI 25.4
[2018-07-27] MEDS ORDERED: cloNIDine 0.2 MG TAB PO SCH (23:45)
[2018-07-28 01:22] LABS: Troponin I 0.038 ng/mL (< 0.028)
[2018-07-28 02:22] LABS: #Eosinphils 0.2 thou/uL (0.0-0.7); #Lymphocytes 1.4 thou/uL (1.20-3.40); #Monocytes 0.4 thou/uL (0.11-0.59); #Neutrophils 2.7 thou/uL (1.40-6.50); %Basophils 0.9 % (0.0-1.0); %Eosinophils 4.8 % (0.0-10.0); %Lymphocytes 28.9 % (21.0-51.0); %Monocytes 8.2 % (0.0-10.0); %Neutrophils 57.3 % (42.0-75.0); Hemoglobin 7.9 g/dL (14.0-18.0); Mean Corpuscular HGB CONC 30.9 g/dL (32.0-36.0); Mean Corpuscular Hemoglobin 29.4 pg (27.0-31.0); Mean Corpuscular Volume 95.2 fL (78.0-98.0); Mean Platelet Volume 8.1 fL (7.4-10.4); Platelet Count 198 thou/uL (130-400); RBC Distribution Width 13.3 % (11.5-14.5); Red Blood Cell (RBC) Count 2.69 mill/uL (4.70-6.10); White Blood Cell (WBC) Count 4.8 thou/uL (4.8-10.8)
[2018-07-28 02:53] LABS: Anion Gap 11 mmol/L (10-20); BUN (Urea Nitrogen) 32 mg/dL (8.4-25.7); Calc. Creatinine Clearance 63 mL/min (70-130); Calcium 9.4 mg/dL (7.8-10.44); Carbon Dioxide 35 mmol/L (23-31); Chloride 101 mmol/L (98-107); Estimated GFR-MDRD Greater than 90; Glucose 184 mg/dL (80-115); Potassium 4.8 mmol/L (3.5-5.1); Sodium 142 mmol/L (136-145)
[2018-07-28 08:44] LABS: Iron 59 ug/dL (65-175); Iron Binding Capacity, Total 314 mcg/dL (261-462)
[2018-07-28] MEDS: predniSONE 20 MG TAB PO SCH ×2 (08:52→16:53)
[2018-07-28] MEDS: Aspirin 81 mg Enteric Coated Tablet PO SCH (08:52)
[2018-07-28] MEDS: Atorvastatin Calcium 40 MG TAB PO SCH (08:52)
[2018-07-28] MEDS: Enoxaparin Sodium 40 MG/0.4 ML SYRINGE SC SCH (08:53)
[2018-07-28] MEDS: cloNIDine 0.2 MG TAB PO SCH ×3 (08:53→19:54)
[2018-07-28] MEDS: DULoxetine 60 MG CAP PO SCH (08:53)
[2018-07-28] MEDS: Famotidine 20 MG TAB PO SCH ×2 (08:53→19:54)
[2018-07-28] MEDS: Gabapentin 400 MG CAP PO SCH ×3 (08:54→19:54)
[2018-07-28] MEDS: Metoprolol Tartrate 25 MG TAB PO SCH ×2 (08:54→19:54)
[2018-07-28] MEDS: NIFEdipine XL 90 MG TAB PO SCH (08:54)
[2018-07-28] MEDS: Montelukast Sodium 10 mg Tablet PO SCH (08:54)
[2018-07-28] MEDS: Potassium Chloride 10 MEQ TAB PO SCH ×2 (08:55→19:55)
[2018-07-28] MEDS: Famotidine/PF 20 mg/2ml Vial SLOW IVP SCH ×2 (08:57→19:55)
[2018-07-28] MEDS ORDERED: Mometasone/Formoterol 120 PUFF INHALER INH SCH (09:00)
[2018-07-28] MEDS ORDERED: Enoxaparin Sodium 40 MG/0.4 ML SYRINGE SC SCH (09:00)
[2018-07-28 09:05] LABS: Ferritin 88.25 ng/mL (22-322); Thyroid Stimulating Hormone 0.5162 uIU/mL (0.35-4.94)
[2018-07-28 09:13] LABS: Folate (Folic Acid) 13.9 ng/mL (7.0-31.4)
--- NOTE | 2018-07-28 09:26 | HP ---
PRIMARY CARE PROVIDER: Dr. Arevalo. HISTORY OF PRESENT ILLNESS: The patient referred to the [facility] by [facility]. The patient states he was sent to the hospital for low O2 saturation. He is alert, oriented. He has had some shortness of breath, some cough. No chest pain. No fever or chills. He was hospitalized here a month ago. PAST MEDICAL HISTORY: Chronic respiratory failure secondary to chronic obstructive pulmonary disease, home O2; hypertension; tobacco usage; diabetes mellitus; hyperlipidemia; depression; and anemia of unknown etiology. He also has chronic diastolic heart failure, chronically elevated troponins. MEDICATIONS: 1. Lasix 20 mg a day. 2. Glipizide/metformin 5/500 once a day. 3. Imdur 30 mg a day. 4. Gabapentin 400 mg three times a day. 5. Cymbalta 60 mg a day. 6. Nifedipine 90 mg a day. 7. Metoprolol 25 mg twice a day. 8. Clonidine 0.2 mg t.i.d. 9. Potassium chloride 10 mEq b.i.d. 10. Aspirin 81 mg a day. 11. Atorvastatin 40 mg a day. ALLERGIES: NO KNOWN DRUG ALLERGIES. PAST SURGICAL HISTORY: Bilateral AKA amputations. SOCIAL HISTORY: Single. Lives alone. Full code. Surrogate decision maker is his niece, Jabier. Quit smoking approximately two months ago. Has an occasional alcoholic beverage. REVIEW OF SYSTEMS: HEAD: No headaches, dizziness, or fainting. EYES: No double vision, blurred vision, flashing lights. EARS, NOSE, AND THROAT: No ear pain or drainage. No nose bleeding. No trouble swallowing. CARDIAC: No chest pain, orthopnea, or paroxysmal nocturnal dyspnea. RESPIRATIONS: See present illness. GASTROINTESTINAL: No nausea, vomiting, diarrhea, or constipation. GENITOURINARY: No hematuria, dysuria, or nocturia. MUSCULOSKELETAL: Bilateral AKA amputations. NEUROLOGIC: No strokes, seizures, or focal weakness. PSYCHIATRIC: No anxiety or depression. SKIN: No bruising, bleeding, or rash. HEME/LYMPH: No tender or swollen lymph nodes in the axilla or inguinal or cervical area. PHYSICAL EXAMINATION: GENERAL: The patient is alert, oriented, cooperative, and pleasant. VITAL SIGNS: Blood pressure 169/72, O2 saturation was 100% on 2.52 L, pulse 67, and respirations 18. HEAD, EYES, EARS, NOSE, AND THROAT: Revealed pupils are equal and round. Bilateral arcus. Sclerae are white. Extraocular movements intact. Tympanic membranes clear. Nose clear. Oral mucous membranes are wet. NECK: No jugular venous distention, adenopathy, or thyromegaly. CHEST: Clear to auscultation and percussion. HEART: Regular rate and rhythm. First and second heart sounds are clear. ABDOMEN: Soft. No hepatosplenomegaly, rebound, guarding, or tenderness. Bowel sounds are normal. EXTREMITIES: Bilateral AK amputation. No skin breakdown. PULSES: Carotid, radial, and femoral pulses intact. SKIN: Warm and dry without bruises or rash. HEME/LYMPH: No tender or swollen lymph nodes in axilla, inguinal, or cervical area. NEUROLOGIC: Cranial nerves 2 through 12 are intact. Moves all extremities. DIAGNOSTIC STUDIES: Chest x-ray; no cardiomegaly, CHF, or infiltrate, reviewed by me. EKG; left axis deviation, right bundle branch block, sinus rhythm. LABORATORY DATA: White count 4.8, hemoglobin down to 7.9, platelet count 198,000. Comprehensive metabolic profile normal except for moderately high CO2 of 35, BUN 32, glucose 184. Troponin 0.056, 0.038, 0.040. ADMITTING DIAGNOSES: Acute on chronic respiratory failure, on O2; chronic obstructive pulmonary disease; chronic diastolic heart failure; anemia, adverse compared to previous; and diabetes mellitus type 2. PLAN: O2 to keep sats above 92. Anemia workup. Continue home medications. We will re-evaluate when the anemia workup is back. The patient has been admitted . Job ID: [id number]
[2018-07-28] MEDS: Sodium Chloride 0.9% 1,000 ML IV SCH ×2 (10:29→23:00)
[2018-07-28] MEDS: HumaLOG 300 UNITS/3 ML VIAL SC PRN (16:57)
[2018-07-28] MEDS: Mometasone/Formoterol 120 PUFF INHALER INH SCH (19:36)
[2018-07-29 06:05] LABS: #Lymphocytes 1.6 thou/uL (1.20-3.40); #Monocytes 0.4 thou/uL (0.11-0.59); #Neutrophils 2.1 thou/uL (1.40-6.50); %Basophils 0.3 % (0.0-1.0); %Eosinophils 0.8 % (0.0-10.0); %Lymphocytes 38.1 % (21.0-51.0); %Monocytes 9.2 % (0.0-10.0); %Neutrophils 51.6 % (42.0-75.0); Hemoglobin 7.5 g/dL (14.0-18.0); Mean Corpuscular HGB CONC 31.5 g/dL (32.0-36.0); Mean Corpuscular Hemoglobin 29.5 pg (27.0-31.0); Mean Corpuscular Volume 93.7 fL (78.0-98.0); Mean Platelet Volume 8.5 fL (7.4-10.4); Platelet Count 182 thou/uL (130-400); RBC Distribution Width 12.9 % (11.5-14.5); Red Blood Cell (RBC) Count 2.56 mill/uL (4.70-6.10); White Blood Cell (WBC) Count 4.2 thou/uL (4.8-10.8)
[2018-07-29 06:13] LABS: Anion Gap 10 mmol/L (10-20); BUN (Urea Nitrogen) 29 mg/dL (8.4-25.7); Calc. Creatinine Clearance 69 mL/min (70-130); Calcium 9.3 mg/dL (7.8-10.44); Carbon Dioxide 34 mmol/L (23-31); Chloride 104 mmol/L (98-107); Estimated GFR-MDRD Greater than 90; Glucose 120 mg/dL (80-115); Potassium 5.2 mmol/L (3.5-5.1); Sodium 143 mmol/L (136-145)
[2018-07-29] MEDS: Mometasone/Formoterol 120 PUFF INHALER INH SCH (06:52)
[2018-07-29 07:05] VITALS: BP 150/60; TEMP 97.6
[2018-07-29] MEDS: Metoprolol Tartrate 25 MG TAB PO SCH (09:03)
[2018-07-29] MEDS: Potassium Chloride 10 MEQ TAB PO SCH (09:03)
[2018-07-29] MEDS: Atorvastatin Calcium 40 MG TAB PO SCH (09:03)
[2018-07-29] MEDS: Montelukast Sodium 10 mg Tablet PO SCH (09:03)
[2018-07-29] MEDS: Aspirin 81 mg Enteric Coated Tablet PO SCH (09:03)
[2018-07-29] MEDS: cloNIDine 0.2 MG TAB PO SCH (09:03)
[2018-07-29] MEDS: Enoxaparin Sodium 40 MG/0.4 ML SYRINGE SC SCH (09:03)
[2018-07-29] MEDS: DULoxetine 60 MG CAP PO SCH (09:03)
[2018-07-29] MEDS: NIFEdipine XL 90 MG TAB PO SCH (09:03)
[2018-07-29] MEDS: Famotidine 20 MG TAB PO SCH (09:04)
[2018-07-29] MEDS: Gabapentin 400 MG CAP PO SCH (09:04)
[2018-07-29] MEDS: predniSONE 20 MG TAB PO SCH (09:04)
[2018-07-29] MEDS: Famotidine/PF 20 mg/2ml Vial SLOW IVP SCH (09:04)
[2018-07-29] MEDS: Sodium Chloride 0.9% 1,000 ML IV SCH (10:44)
--- NOTE | 2018-07-29 11:06 | DIS ---
DATE OF ADMISSION: 07/27/2018 DATE OF DISCHARGE: 07/29/2018 TRANSFER OF CARE: DISPOSITION: Discharged home. PRIMARY CARE PROVIDER: Betsy Arevalo MD FINAL DIAGNOSES: 1. Iron deficiency anemia. 2. Chronic obstructive pulmonary disease, no exacerbation. 3. Chronic respiratory failure, on home O2. 4. Diastolic heart failure. 5. Diabetes mellitus type 2. DISCHARGE MEDICATIONS: 1. Ferrous gluconate 324 mg a day. 2. Lasix 20 mg a day. 3. Glipizide. 4. Metformin 500 one a day. 5. Imdur 30 mg a day. 6. Gabapentin 400 mg three times a day. 7. Cymbalta 60 mg a day. 8. Nifedipine 90 mg a day. 9. Metoprolol 25 mg twice a day. 10. Clonidine 0.2 mg t.i.d. 11. KCl 10 mEq twice a day. 12. Aspirin 81 mg a day. 13. Lipitor 40 mg a day. 14. Dulera 200/5 two puffs b.i.d. ALLERGIES: NO KNOWN DRUG ALLERGIES. DIET: Diabetic. PENDING AT TIME OF DISCHARGE: Nothing. CODE STATUS: Full. HOSPITAL COURSE: The patient was referred to [facility] by [facility] for shortness of breath and elevated troponins. The patient's chest showed no wheezes or rales. Chest x-ray, no acute pulmonary process. No infiltrate, CHF. Laboratory, hemoglobin was 7.9, which is somewhat lower than usual, and no history of bleeding. I discussed anemia with him. He states he does have iron deficiency and anemia in the past. He has had EGD and colonoscopy within the last year without any source. Metabolic profile was unremarkable. His iron was low at 59, TIBC was 314. Today, he is doing well. His exam remains unremarkable. He is being discharged home with the addition of iron to his usual medications. He is going home on O2 3 L per nasal cannula. No consultations. No procedures. Job ID: [id number]
[2018-07-29] MEDS: HumaLOG 300 UNITS/3 ML VIAL SC PRN (12:15)
--- NOTE | 2018-07-31 13:40 | EKG ---
Test Reason : Blood Pressure : / mmHG Vent. Rate : 096 BPM Atrial Rate : 096 BPM P-R Int : 170 ms QRS Dur : 150 ms QT Int : 370 ms P-R-T Axes : 043 188 049 degrees QTc Int : 467 ms Normal sinus rhythm Right bundle branch block Abnormal ECG Confirmed by MARILYN WILCOX DO ([id number]), continuity editor ZEYAD WEBBER ([id number]) on 07/31/2018 1:39:40 PM Referred By: Confirmed By:MARILYN WILCOX DO
== END 2018-07-29 14:37 | disposition home or self-care (01) ==
LOC: ERS 19:33 → 2NO 20:10 → T4-A 07-28 09:57
PROVIDERS: ADMIT Internal Medicine; ATTEND Internal Medicine
DX: D50.9 Iron deficiency anemia, unspecified (principal); J44.9 Chronic obstructive pulmonary disease, unspecified; E11.9 Type 2 diabetes mellitus without complications; E78.5 Hyperlipidemia, unspecified; F32.9 Major depressive disorder, single episode, unspecified; I11.0 Hypertensive heart disease with heart failure; I50.32 Chronic diastolic (congestive) heart failure; J96.11 Chronic respiratory failure with hypoxia; Z87.891 Personal history of nicotine dependence; Z79.82 Long term (current) use of aspirin; Z79.84 Long term (current) use of oral hypoglycemic drugs; Z79.899 Other long term (current) drug therapy; Z99.81 Dependence on supplemental oxygen
CPT/HCPCS: 70450; 80048 ×2; 80053; 82553; 82607; 82728; 82746; 82962 ×3; 83540; 83550; 84443; 84484 ×3; 85025 ×2; 90662; 93005; 94640 ×2; 94664; 96360; 96361; 96372; 99285; G0008; G0378 ×2; 36415; 36416; 90471; J1650; J7506; S0028

== ENCOUNTER 2018-09-01 15:30 | Inpatient (IN) | payer MEDICARE ==
[~2018-09-01 15:30] MED LIST: Iopamidol 370 76% 100 ML VIAL ONE; Iopamidol 370 76% 50 ML VIAL FS ONE
[2018-09-01 15:50] LABS: #Basophils 0.1 thou/uL (0.0-0.2); #Eosinphils 0.2 thou/uL (0.0-0.7); #Lymphocytes 2.9 thou/uL (1.20-3.40); #Monocytes 0.4 thou/uL (0.11-0.59); #Neutrophils 4.8 thou/uL (1.40-6.50); %Basophils 1.1 % (0.0-1.0); %Eosinophils 2.7 % (0.0-10.0); %Lymphocytes 34.7 % (21.0-51.0); %Monocytes 4.9 % (0.0-10.0); %Neutrophils 56.7 % (42.0-75.0); Hemoglobin 6.3 g/dL (14.0-18.0); Mean Corpuscular HGB CONC 31.2 g/dL (32.0-36.0); Mean Corpuscular Hemoglobin 31.1 pg (27.0-31.0); Mean Corpuscular Volume 99.7 fL (78.0-98.0); Mean Platelet Volume 7.6 fL (7.4-10.4); Platelet Count 314 thou/uL (130-400); RBC Distribution Width 15.5 % (11.5-14.5); Red Blood Cell (RBC) Count 2.04 mill/uL (4.70-6.10); White Blood Cell (WBC) Count 8.4 thou/uL (4.8-10.8)
[2018-09-01 15:57] LABS: INR-International Normal Ratio 1.2; Prothrombin Time 15.2 SEC (12.0-14.7)
[2018-09-01] MEDS ORDERED: Aggrastat 12.5 MG/250 ML 250 ML ONE (16:03)
[2018-09-01 16:05] LABS: ALT (SGPT) 31 U/L (8-55); AST (SGOT) 52 U/L (5-34); Albumin 3.4 g/dL (3.4-4.8); Alkaline Phosphatase 44 U/L (40-150); Anion Gap 20 mmol/L (10-20); BUN (Urea Nitrogen) 24 mg/dL (8.4-25.7); Bilirubin, Total 0.2 mg/dL (0.2-1.2); Calc. Creatinine Clearance 0 mL/min (70-130); Calcium 8.9 mg/dL (7.8-10.44); Carbon Dioxide 24 mmol/L (23-31); Chloride 105 mmol/L (98-107); Estimated GFR-MDRD 68; Globulin 2.9 g/dL (2.4-3.5); Glucose 200 mg/dL (80-115); Lipase 171 U/L (8-78); Potassium 4.4 mmol/L (3.5-5.1); Protein, Total 6.3 g/dL (5.8-8.1); Sodium 145 mmol/L (136-145)
[2018-09-01 16:13] LABS: PTT Greater than 250.0 SEC (22.9-36.1)
[2018-09-01] MEDS ORDERED: Aggrastat 12.5 MG/250 ML 250 ML IVPB SCH (16:30)
[2018-09-01 16:40] LABS: #Basophils 0.1 thou/uL (0.0-0.2); #Eosinphils 0.2 thou/uL (0.0-0.7); #Lymphocytes 1.9 thou/uL (1.20-3.40); #Monocytes 0.3 thou/uL (0.11-0.59); #Neutrophils 4.9 thou/uL (1.40-6.50); %Basophils 1.1 % (0.0-1.0); %Eosinophils 2.4 % (0.0-10.0); %Lymphocytes 25.8 % (21.0-51.0); %Neutrophils 66.8 % (42.0-75.0); Hemoglobin 5.8 g/dL (14.0-18.0); Mean Corpuscular HGB CONC 30.7 g/dL (32.0-36.0); Mean Corpuscular Hemoglobin 30.3 pg (27.0-31.0); Mean Corpuscular Volume 98.7 fL (78.0-98.0); Mean Platelet Volume 7.5 fL (7.4-10.4); Platelet Count 303 thou/uL (130-400); RBC Distribution Width 15.7 % (11.5-14.5); White Blood Cell (WBC) Count 7.4 thou/uL (4.8-10.8)
[2018-09-01] MEDS ORDERED: Sodium Chloride 0.9% 1,000 ML IV SCH (16:45)
--- NOTE | 2018-09-01 16:55 | RAD ---
FRONTAL VIEW CHEST: Comparison: 07-27-[address] Indication: ST elevation, myocardial infarction with chest pain. FINDINGS: There are extrinsic artifacts limiting detail. There is no lobar consolidation. Bilateral perihilar i nterstitial prominence is evident. There is vascular congestion and prominence of the cardiac silhoue tte. Vascular calcification is seen. IMPRESSION: 1. Enlarged cardiac silhouette and prominence of pulmonary vasculature which may relate to CHF/edema. Correlate clinically. 2. As indicated, continued imaging follow up may be obtained. POS: [facility]
[2018-09-01 17:07] LABS: CKMB 2.1 ng/mL (0-6.6)
[2018-09-01 17:10] LABS: Troponin I 0.032 ng/mL (< 0.028)
[2018-09-01] MEDS ORDERED: Polyethylene Glycol 3350 17 GM Packet PO PRN (17:11)
[2018-09-01 17:20] LABS: CKMB 2.4 ng/mL (0-6.6)
[2018-09-01] MEDS ORDERED: Dextrose 5% in Water 1,000 ML IV PRN (17:35)
[2018-09-01] MEDS ORDERED: HumaLOG 300 UNITS/3 ML VIAL SC PRN (17:35)
--- NOTE | 2018-09-01 17:35 | HP ---
CHIEF COMPLAINT: Acute MS. HISTORY OF PRESENT ILLNESS: Mr. Palumbo is a pleasant 68-year-old gentleman, who comes to the hospital for chest pain. EMS did an EKG en route and he was found to have ST elevations on the inferolateral leads, so STEMI alert was activated. In the ER, he was clammy, diaphoretic, and with ongoing chest pain and significant ST elevations on EKG. So, he was taken to the catheterization lab emergently. He was found to have a widely patent left system. His RCA was also patent. He has a lesion on the ostium of the RCA with a large clot protruding into the aorta making this significantly high risk for an intervention. Given that possibility and high likelihood of embolism to the brain and causing him to have a stroke. We did consider try to put in a catheter and do a thrombectomy. However, in the process of putting the catheters up the guides, he has a very tortuous iliac. We had to exchange the sheath to a long 6-Ivorian sheath. It was long enough for us to get the results back of his blood work and it was significant for a very low hemoglobin at 6.3. Secondary to this, we decided to not proceed with any further interventions as he actually had blood flow into the RCA and was chest pain-free and his STs had improved. He had a repeat hemoglobin and it is actually lower at 5.8, so blood transfusion is planned. He tells me that he was placed on iron recently as he was told that he was anemic. He has a history of GI bleeds in the past. Few years back, he had a colonoscopy and had to have blood transfusions due to red blood per rectum. He does not remember much details about and this was at a different facility. PAST MEDICAL HISTORY: 1. COPD on home O2. 2. Hypertension. 3. Chronic tobacco use. 4. Type 2 diabetes. 5. Hyperlipidemia. 6. Depression. 7. Anemia of unknown etiology. 8. Chronic diastolic heart failure. 9. Chronically elevated troponins. 10. Severe peripheral vascular disease. OUTPATIENT MEDICATIONS: Include; 1. Lasix 20 mg a day. 2. Glipizide with metformin 5/500 daily. 3. Imdur 30 mg a day. 4. Gabapentin 400 mg 3 times a day. 5. Cymbalta 60 mg a day. 6. Nifedipine 90 mg a day. 7. Metoprolol 25 mg b.i.d. 8. Clonidine 0.2 mg t.i.d. 9. Potassium chloride 10 mEq b.i.d. 10. Aspirin 81 a day. 11. Atorvastatin 40 mg a day. ALLERGIES: NO KNOWN DRUG ALLERGIES. PAST SURGICAL HISTORY: 1. Bilateral [id number] amputations. 2. Appendectomy in his teens. 3. Colonoscopies. 4. Right aortofemoral bypass. SOCIAL HISTORY: He lives alone and he is single. His niece, Jabier, is his surrogate decision maker. He continues to smoke about 4 cigarettes a day. He says he places a timer for the time he can get another smoke. Social alcohol use. No drug use. FAMILY HISTORY: Diabetes, otherwise no early coronary artery disease. REVIEW OF SYSTEMS: A 12-point review of systems was done and was found to be negative other than stated in the history of present illness. PHYSICAL EXAMINATION: VITAL SIGNS: Temperature 97.2, pulse 58, respiratory rate 18, saturating 96% on 4 L nasal cannula, and blood pressure on the beginning of the procedure at 102/64 and towards the end of the procedure 145/80. GENERAL: Awake, alert, and oriented x3, in no distress. HEENT: Normocephalic and atraumatic. NECK: Supple. LUNGS: Have reduced breath sounds bilaterally. CARDIOVASCULAR: S1 and S2. No S3 or S4. There is a grade 2/6 systolic murmur at the right upper sternal border. ABDOMEN: Soft. Positive bowel sounds. EXTREMITIES: Bilateral AKA. LABORATORY DATA: Laboratory work was reviewed. CBC with a white count of 8.4, hemoglobin of 6.3, hematocrit 20.3, and platelet count 314. Coags with APT greater than 250 and INR 1.2. Chemistries with a BUN and creatinine of 24 and 1.2, GFR of 68, glucose was 200, AST 52, ALT 31, and alkaline phosphatase 44. Troponin initially was 0.05. Albumin was 3.4 and lipase of 171. Chest x-ray showed chronic findings consistent with his history of COPD. Most recent echocardiogram was done 2 months ago and it showed an EF of 55% to 60% with LVH, mild MR, and normal aortic valve. ASSESSMENT: 1. Acute inferior ST-elevation myocardial infarction. 2. Severe anemia. 3. History of gastrointestinal bleed. No evidence of bleeding recently per Mr. Palumbo report. 4. Chronic obstructive pulmonary disease. 5. Hypertension. PLAN: 1. We will plan on keeping him on Aggrastat and an aspirin for now. No stent to be placed. Given his severe anemia, unsure of this is GI bleeding, apparently not active per his report. He has been noticing dark stools, but he has been on iron for the last month. 2. PPI for stress ulcer prophylaxis. 3. No DVT prophylaxis needed as he has no legs and he is on Aggrastat. 4. We will get echocardiogram. 5. Full code for now. 6. Disposition pending clinical evolution. We will plan on Aggrastat for a total of 24 hours. We will watch hemoglobin closely. 7. Transfuse 2 units PRBCs. Job ID: [id number]
[2018-09-01 18:19] VITALS: BP 101/53
[2018-09-01] MEDS ORDERED: Mometasone/Formoterol 120 PUFF INHALER INH SCH (18:30)
[2018-09-01] MEDS ORDERED: Gabapentin 400 MG CAP PO SCH (21:00)
[2018-09-01] MEDS ORDERED: Atorvastatin Calcium 40 MG TAB PO SCH (21:00)
[2018-09-01] MEDS ORDERED: Montelukast Sodium 10 mg Tablet PO SCH (21:00)
[2018-09-01] MEDS ORDERED: Heparin 25,000 units/D5W 500 ML IV SCH (22:00)
[2018-09-01] MEDS ORDERED: Heparin 10,000 UNITS/ 10 ML VIAL SLOW IVP SCH (22:00)
[2018-09-01 22:44] LABS: CKMB 23.5 ng/mL (0-6.6)
[2018-09-01 22:46] LABS: Troponin I 0.706 ng/mL (< 0.028)
[2018-09-01] MEDS ORDERED: Pantoprazole 40 MG VIAL IVP SCH (23:00)
--- NOTE | 2018-09-01 23:45 | CON ---
DATE OF CONSULTATION: 09/01/2018 SERVICE: Pulmonary Medicine. REASON FOR CONSULT: ICU patient. HISTORY OF PRESENT ILLNESS: The patient is a 68-year-old male with past medical history significant for coronary artery disease and bad diabetes. He was in his usual state of health when he started having onset of chest discomfort. He actually got seen by a physician this morning. This was a routine followup and everything was okay. Later in the afternoon, he started having nausea, vomiting , diaphoresis, and chest discomfort. He has never experienced any symptoms like this before. He presented to the emergency department. Ultimately, he was discovered to have an inferior FL, was taken to the labeling associate. Because there was a clot coming out of the RCA, it could not be adequately removed. Blood flow could not be re-established in the conventional method. As such, he was initiated on anti-platelet and anticoagulation medication. His chest pain has actually improved significantly. It is now down to a 6/10. He is not having any nausea, diaphoresis, or vomiting any longer. He is asking for some water. PAST MEDICAL HISTORY: 1. COPD. 2. Chronic hypoxic respiratory failure. 3. Hypertension. 4. Dyslipidemia. 5. Type 2 diabetes mellitus. 6. Coronary artery disease. 7. History of myocardial infarction. 8. Major depressive disorder. 9. Anemia. 10. Chronic diastolic heart failure. PAST SURGICAL HISTORY: 1. Above-knee amputation, bilateral. 2. History of cardiac catheterization without PCI. SOCIAL HISTORY: He is single and lives alone. He recently has quit smoking. He has an occasional alcohol beverage. He has a greater than 00-xefi-dwsl history of smoking. He denies any illicit drugs. FAMILY HISTORY: Noncontributory. ALLERGIES: NO KNOWN DRUG ALLERGIES. MEDICATIONS: List of his inpatient medications was reviewed. No specific updates were made at this time. REVIEW OF SYSTEMS: General, head ears, eyes, nose, throat, cardiovascular, respiratory, GI, , musculoskeletal, neurologic, and skin are negative except as mentioned in the HPI. PHYSICAL EXAMINATION: VITAL SIGNS: Afebrile, pulse 52, blood pressure 150/60, respirations 19, and saturation 99% on 3 L nasal cannula. GENERAL: The patient is awake and alert. He is in no apparent distress. Breathing comfortably. HEENT: Normocephalic and atraumatic. Sclerae are white. Conjunctivae pink. Oral mucosa is moist without lesions. LUNGS: Decent air entry. There is no prolonged expiratory phase, wheezing, rhonchi, or crackles present. HEART: Normal rate, regular. ABDOMEN: Soft, nontender, and nondistended. Bowel sounds are positive. MUSCULOSKELETAL: No cyanosis or clubbing. There is no pitting in the bilateral lower extremities. NEUROLOGIC: Grossly nonfocal. LABORATORY DATA: Hemoglobin 5.8 which has been gradually downtrending over a period of 3 months. MCV 99 and trending upward. INR 1.2. Basic metabolic profile is unremarkable, creatinine 1.28, which is certainly above baseline. Liver function studies are unremarkable, troponin 0.053 and downtrending. CK-MB falls within the normal limits. Lipase 171. IMAGIN. Chest x-ray demonstrates enlarged cardiac silhouette, and engorged pulmonary vasculature. 2. EKG demonstrates findings consistent with an inferior myocardial infarction. ASSESSMENT: 1. Chronic obstructive pulmonary disease without acute exacerbation. 2. Chronic hypoxic and hypercapnic respiratory failure. 3. Acute myocardial infarction, inferior, status post cardiac catheterization with IV thrombolytic therapy (because of location of clot, thrombectomy and drug- eluting stent could not be placed). 4. Diabetes mellitus. 5. Anemia, evolving over the past 2 months. DISCUSSION AND PLAN: We will watch the patient in the ICU. We will follow along to make certain he does not develop any increasing respiratory issues. He currently denies any difficulty breathing and his chest pain is getting better. We will put him on Dulera schedule twice daily and allow for him to use DuoNeb if needed. Pulmonary Critical Care will continue to follow along. Dr. Seo has established a relationship with Mr. Palumbo and will resume care in the morning. 70 minutes have been devoted to this patient in various activities. I personally reviewed all imaging studies and laboratory data noted within this document. For fifty percent of this time, I was interacting with the patient at the bedside or coordinating care with the care team. For the remainder of the time I was immediately available to the patient in the hospital unit. Job ID: [id number] MTDD
[2018-09-01] MEDS: Dextrose 50% Abboject 50 ML SYRINGE SLOW IVP PRN (23:48)
[2018-09-02] MEDS ORDERED: Gabapentin 400 MG CAP PO SCH (01:45)
[2018-09-02 06:13] LABS: Band 8 % (5-11); Hemoglobin 8.1 g/dL (14.0-18.0); Lymphocytes 4 % (21-51); MDiff Complete? YES; Mean Corpuscular HGB CONC 31.2 g/dL (32.0-36.0); Mean Corpuscular Hemoglobin 30.3 pg (27.0-31.0); Mean Corpuscular Volume 97.2 fL (78.0-98.0); Mean Platelet Volume 8.6 fL (7.4-10.4); Monocytes 12 % (0-10); Neutrophil 76 % (42-75); Nucleated RBC 2 % (0); Platelet Count 172 thou/uL (130-400); Platelet Morphology Comment Appears Adequate; RBC Distribution Width 14.4 % (11.5-14.5); Red Blood Cell (RBC) Count 2.66 mill/uL (4.70-6.10); White Blood Cell (WBC) Count 11.5 thou/uL (4.8-10.8)
[2018-09-02 06:35] LABS: ALT (SGPT) 2516 U/L (8-55); AST (SGOT) 2171 U/L (5-34); Albumin 2.8 g/dL (3.4-4.8); Alkaline Phosphatase 74 U/L (40-150); Anion Gap 36 mmol/L (10-20); BUN (Urea Nitrogen) 47 mg/dL (8.4-25.7); Bilirubin, Total 0.9 mg/dL (0.2-1.2); Calc. Creatinine Clearance 33 mL/min (70-130); Calcium 8.4 mg/dL (7.8-10.44); Carbon Dioxide 9 mmol/L (23-31); Chloride 106 mmol/L (98-107); Estimated GFR-MDRD 45; Globulin 2.2 g/dL (2.4-3.5); Glucose 30 mg/dL (80-115); Potassium 7.2 mmol/L (3.5-5.1); Sodium 144 mmol/L (136-145)
[2018-09-02] MEDS: Dextrose 50% Abboject 50 ML SYRINGE SLOW IVP PRN (06:37)
[2018-09-02] MEDS ORDERED: Calcium Chloride 1 GM/10 ML Abboject SYRINGE ONE ×2 (06:45→07:56)
[2018-09-02] MEDS ORDERED: Calcium Chloride 13.6 MEQ in Sodium Chloride 0.9% 100 ML IVPB SCH (07:00)
[2018-09-02 07:17] VITALS: TEMP 93.8
[2018-09-02 07:45] LABS: Folate (Folic Acid) 36.7 ng/mL (7.0-31.4)
[2018-09-02 07:54] LABS: Anion Gap 31 mmol/L (10-20); BUN (Urea Nitrogen) 51 mg/dL (8.4-25.7); Calc. Creatinine Clearance 31 mL/min (70-130); Calcium 10.5 mg/dL (7.8-10.44); Carbon Dioxide 9 mmol/L (23-31); Chloride 104 mmol/L (98-107); Estimated GFR-MDRD 42; Glucose 135 mg/dL (80-115); Potassium 6.7 mmol/L (3.5-5.1); Sodium 137 mmol/L (136-145)
[2018-09-02] MEDS ORDERED: Furosemide 40 MG/4 ML VIAL ONE (07:56)
[2018-09-02] MEDS ORDERED: Ferrous Sulfate 325 MG TAB PO SCH (08:00)
[2018-09-02] MEDS ORDERED: Calcium Chloride 1 GM/10 ML Abboject SYRINGE IVP SCH (08:00)
[2018-09-02] MEDS ORDERED: Furosemide 40 MG/4 ML VIAL SLOW IVP SCH (08:00)
[2018-09-02] MEDS ORDERED: Midazolam HCl 2 mg/2 ml Vial ONE (08:15)
[2018-09-02] MEDS ORDERED: Propofol 1,000 MG/100 ML VIAL IV ONE (08:33)
[2018-09-02] MEDS ORDERED: EPINEPHrine 4 MG in Dextrose 5% in Water 250 ML IV SCH (08:45)
[2018-09-02 08:57] LABS: Base Excess (BEa) -9.4 mEq/L (-2.0 to +3.0); Calcium, Ionized 2.68 mmol/L (1.12-1.30); Carboxyhemoglobin (COHb) 1.7 gm% (0.0-3.0); Hemoglobin (Hb) 6.6 g/dL (14.0-18.0); O2 Tension (PaO2) 458.6 mmHg (> 80.0); Potassium - ABG Lab 8.06 mmol/L (3.70-5.30); pH, Arterial 7.08 (7.35-7.45)
[2018-09-02 08:58] LABS: CO2 Tension 68.9 mmHg (35.0-45.0); Puncture Site ALINE
[2018-09-02 08:59] LABS: ALV-art Gradient 168.275 (0-20)
[2018-09-02] MEDS ORDERED: Aspirin Chewable 81 MG TAB PO SCH (09:00)
[2018-09-02] MEDS ORDERED: DULoxetine 60 MG CAP PO SCH (09:00)
[2018-09-02] MEDS ORDERED: Pantoprazole 40 MG VIAL IVP SCH (09:00)
[2018-09-02] MEDS ORDERED: Prevnar 13-Val Conj/PF 0.5 ML SYRINGE IM ONE (09:00)
--- NOTE | 2018-09-02 09:12 | PDOC.CTH ---
Cardiology Progress Note - Subjective He had hematemesis last night so all anticoagulation and antiplatelet was discontinued yesterday. He received 3 units PRBC's and his Hgb increased to 8. This morning his K was very high, he received keyaxelate, bicarb and calcium chloride. His HR went down to the 20's briefly and eventually went into respiratory distress. He also had a large amount of bleeding from his mouth. ABG done showed his Hgb was back down to 6 and his K which had originally improved was back up to 8. His situation is not survivable as he has both thrombus and bleeding. He has already been coded several times. I believe further coding is futile. He is not going to survive this event. Family was updated. - Objective Vital Signs Temp Pulse Resp Pulse Ox 09/02/18 07:00 93.8 F L 09/02/18 06:00 94 F L 09/02/18 05:00 95.3 F L 09/02/18 04:00 96 F L 98 09/02/18 03:00 96.8 F L 09/02/18 02:00 97.3 F L 09/02/18 01:00 97.7 F 09/02/18 00:00 97.7 F 97 09/01/18 23:00 97.6 F 09/01/18 22:06 63 20 98 09/01/18 22:00 97.6 F 62 19 100 09/01/18 21:15 97.7 F Weight 133 lb 9.602 oz 09/01/18 09/02/18 09/03/18 06:59 06:59 06:59 Intake Total 1058 Output Total 150 Balance 908 - Labs Result Diagrams: 09/02/18 05:40 09/02/18 07:00 Troponin/CKMB CK-MB (CK-2) 23.5 ng/mL (0-6.6) H* 09/01/18 22:08 Troponin I 0.706 ng/mL (< 0.028) H* 09/01/18 22:08 - Assessment/Plan 1. Acute inferior UT 2. RCA thrombus 3. Severe anemia 4. GI bleed 5. Metabolic acidosis 6. Severe hyperkalemia 7. Severe PVD TOD: 9:15 am. 45 minutes critical care bedside.
[2018-09-02] MEDS ORDERED: Midazolam HCl 2 mg/2 ml Vial IVP SCH (09:15)
--- NOTE | 2018-09-02 10:02 | PRG ---
DATE OF SERVICE: 09/02/2018 SUBJECTIVE: Lianet Palumbo events have been reviewed overnight. Overnight, he has became extremely acidemic and hyperkalemic and has developed an unstable rhythm. He had a cardiorespiratory arrest this morning, was intubated by my associate, Dr. Singh. Dr. Callaway and I have been in the room with him for close to an hour with intermittent resuscitation attempts. Most recent blood gas after multiple amps of bicarb and epi drip, and multiple amps of epinephrine and calcium is 7.08, CO2 of 68, PO2 of 458. This is approximately 20 to 30 minutes post intubation. His potassium was 8 again after hyperventilation and multiple amps of bicarb. His hemoglobin is down to 6.6. After he is intubated, he vomited a large amount of old blood. He is intermittently having sinus arrest now. He will not capture with pacing. Even with an epinephrine drip going, he has continued to arrest intermittently and had intermittent CPR. Both Dr. Callaway and myself feel that this is now a point of futility and that ongoing chest compressions and resuscitation attempts will be unsuccessful. OBJECTIVE: LUNGS: He has equal breath sounds after intubation. HEART: Distant S1 and S2. ABDOMEN: Soft. IMPRESSION: The liver enzymes are dramatically elevated overnight. We feel he has hepatic congestion because of massive myocardial infarction with right ventricular extension. He also has a GI bleed complicating all this. Most likely, we feel he has bowel, which would explain the acute change in his potassium and his acid-base status. He is unresponsive at this time with blood pressure in the 30s and heart rate in the 30s. It is suspected that he will pass away. I am told there is only a niece in his family, she is en route. He probably will not survive until she gets here. There is no point in repeating a code. Both Dr. Callaway, my opinion, and also my associate, Dr. Singh, who intubated the patient. We all agree that he is at the end of his life unfortunately. Critical care time 40 minutes. Job ID: [id number] MTDD
--- NOTE | 2018-09-02 12:28 | PQF ---
TANYADESMOND SOHAANA MARIA ANG [id number] CLINICAL DOCUMENTATION IMPROVEMENT CLARIFICATION FORM: ICD-10 Updated PLEASE DO AN ADDENDUM TO THE PROGRESS NOTE WITH ANY DOCUMENTATION UPDATES OR ADDITIONS AND CARRY THROUGH TO DC SUMMARY. THANK YOU. DATE: 09/02/2018 ATTN: DR. HOYOS Please exercise your independent, professional judgment in responding to the clarification form. Clinical indicators are provided on the bottom of this form for your review Please check appropriate box(s): [ ] Acute Respiratory Failure: [ x] with Hypoxia[ ] with Hypercapnia [ ] Acute On Chronic Respiratory Failure: [ ] with Hypoxia [ ] with Hypercapnia [ ] Chronic Respiratory Failure only [ ] with Hypoxia [ ] with Hypercapnia [ ] Hypoxia [ ] Other diagnosis [ ] Unable to determine For continuity of documentation, please document condition throughout progress notes and discharge summary. Thank You. CLINICAL INDICATORS - SIGNS / SYMPTOMS / LABS *ABG pH < 7.35 or > 7.45 PH-7.08 ON *PCO2 68.9 ON *Cardiopulmonary arrest with intubation RISK FACTORS *Acute STEMI *Cardiopulmonary arrest on 09/02 *Tobacco abuse / exposure *09/01: RCA clot with GI bleed = deemed probably unsurvivable. TREATMENTS *Oxygen *Monitoring of oxygenation status *Mechanical ventilation / BiPAP *ABGs *ICU/Stepdown Thank You, Just[employer] (This form is maintained as a part of the permanent medical record) 2015 [employer]. All Rights Reserved Justa De RN, CDIS [email or web address] [phone] MTDD
--- NOTE | 2018-09-02 22:54 | OP ---
DATE OF PROCEDURE: 09/02/2018 SERVICE: Pulmonary Medicine. PROCEDURE: Emergent endotracheal intubation. Procedure was performed emergently secondary to clinical deterioration and respiratory failure. MEDICATIONS USED: None. PRE-PROCEDURE DIAGNOSES: 1. Cardiogenic shock. 2. Pulseless electrical activity. POST-PROCEDURE DIAGNOSES: 1. Cardiogenic shock. 2. Pulseless electrical activity. DESCRIPTION OF PROCEDURE: Vital signs monitoring was accomplished by noninvasive hemodynamic monitoring, pulse oximetry, and telemetry. In the supine position, the patient was preoxygenated with ora-jprdy-pirj ventilation and maintained with saturations of 100%. A GlideScope was inserted through the mouth offering clear identification of the posterior oropharynx and laryngeal structures with a grade 1 view. A 7.5-Seneg[place]e endotracheal tube was visualized passing through the vocal cords. Placement was confirmed bi-axillary chest auscultation, and condensation in the endotracheal tube. It was secured at 25 cm, measured at the teeth. The patient was placed on mechanical ventilation with good return of volumes. Postprocedure x-ray revealed good location for the endotracheal tube in the trachea. ESTIMATED BLOOD LOSS: None. COMPLICATIONS: None. Job ID: [id number]
--- NOTE | 2018-09-03 13:02 | DIS ---
DATE OF ADMISSION: 09/01/2018 DATE OF DISCHARGE: 09/02/2018 DISCHARGING PHYSICIAN: Danny Callaway MD HOSPITAL COURSE: Mr. Palumbo was a 68-year-old gentleman, who came to the hospital for shortness of breath. He was found to have some EKG changes that would suggest an inferior RI, so he was taken to the catheterization lab emergently, where he was found to have a thrombus at the ostium of the RCA. At that time, when we were about to start intervening, we received update on his blood test that had been drawn. His hemoglobin was down to 6, which would have made it prohibitive for us to intervene, so we decided to treat him medically. He had no evidence of acute bleed at that time, so we started him on Aggrastat. Overnight, his hemoglobin continued to drop, so we stopped the Aggrastat. Eventually, the morning of, he continued to drop his hemoglobin. Apparently, he was having a GI bleed as well, which was more than likely he had a thrombus in his LV. He threw this thrombus to his RCA and that made him have an ST-elevation RI. At the same time, he had been bleeding and he had LV dysfunction and his chronic bleed made him have shortness of breath. The morning of the admission, he decompensated fairly quickly and had a code blue. He was resuscitated for several minutes with several different medications without any significant return of spontaneous circulation. He was pronounced that morning. Family was updated. Over 75 minutes of critical care at bedside were administered. Job ID: [id number]
--- NOTE | 2018-09-03 20:54 | EKG ---
Test Reason : POSTOP Blood Pressure : / mmHG Vent. Rate : 057 BPM Atrial Rate : 061 BPM P-R Int : 000 ms QRS Dur : 188 ms QT Int : 462 ms P-R-T Axes : 000 182 069 degrees QTc Int : 449 ms Wide QRS rhythm Junctional rhythm Right bundle branch block Abnormal ECG When compared with ECG of 27-JUL-2018 19:49, Wide QRS rhythm has replaced Sinus rhythm Vent. rate has decreased BY 39 BPM Confirmed by Wendy DONAHUE ([id number]) on 09/03/2018 8:54:06 PM Referred By: SOHA Confirmed By:Wendy DONAHUE
--- NOTE | 2018-09-03 20:55 | EKG ---
Test Reason : Blood Pressure : / mmHG Vent. Rate : 049 BPM Atrial Rate : 046 BPM P-R Int : 000 ms QRS Dur : 110 ms QT Int : 502 ms P-R-T Axes : 000 145 078 degrees QTc Int : 453 ms Junctional rhythm with occasional Premature ventricular complexes Right axis deviation Pulmonary disease pattern Nonspecific ST abnormality Abnormal ECG When compared with ECG of 01-SEP-2018 18:44, (Unconfirmed) Junctional rhythm has replaced Wide QRS rhythm Confirmed by Wendy DONAHUE ([id number]) on 09/03/2018 8:55:02 PM Referred By: SOHA Confirmed By:Wendy DONAHUE
--- NOTE | 2018-09-04 11:00 | EKG ---
Test Reason : CP Blood Pressure : / mmHG Vent. Rate : 059 BPM Atrial Rate : 059 BPM P-R Int : 174 ms QRS Dur : 188 ms QT Int : 434 ms P-R-T Axes : 068 114 069 degrees QTc Int : 429 ms Sinus bradycardia Right bundle branch block ST elevation consider inferior injury or acute infarct ACUTE OR / STEMI Abnormal ECG Confirmed by ROBERTO SANCHEZ DO ([id number]), editor managing newspaper [employer]EYAD WEBBER ([id number]) on 09/04/2018 10:59:54 AM Referred By: Confirmed By:ROBERTO SANCHEZ DO
== END 2018-09-02 09:17 | disposition expired ==
LOC: ERS 15:30 → CCL 16:38 → CCU 20:47
PROVIDERS: ADMIT Internal Medicine Cardiovascular Disease; ATTEND Internal Medicine Cardiovascular Disease
PROC: 4A023N7 Measurement of Cardiac Sampling and Pressure, Left Heart, Percutaneous Approach (ICD-10-PCS; 2018-09-01)
PROC: B2111ZZ Fluoroscopy of Multiple Coronary Arteries using Low Osmolar Contrast (ICD-10-PCS; 2018-09-01)
PROC: 0BH17EZ Insertion of Endotracheal Airway into Trachea, Via Natural or Artificial Opening (ICD-10-PCS; principal; 2018-09-02)
PROC: 5A1935Z Respiratory Ventilation, Less than 24 Consecutive Hours (ICD-10-PCS; 2018-09-02)
DX: I21.19 ST elevation (STEMI) myocardial infarction involving other coronary artery of inferior wall (principal); J96.01 Acute respiratory failure with hypoxia; I50.32 Chronic diastolic (congestive) heart failure; K92.2 Gastrointestinal hemorrhage, unspecified; E87.2 Acidosis; J44.9 Chronic obstructive pulmonary disease, unspecified; I11.0 Hypertensive heart disease with heart failure; Z99.81 Dependence on supplemental oxygen; F32.9 Major depressive disorder, single episode, unspecified; E11.51 Type 2 diabetes mellitus with diabetic peripheral angiopathy without gangrene; Z89.612 Acquired absence of left leg above knee; Z89.611 Acquired absence of right leg above knee; E78.5 Hyperlipidemia, unspecified; D64.9 Anemia, unspecified; E87.5 Hyperkalemia
CPT/HCPCS: 36415; 36416; 36430; 71045; 80053; 82274; 82553; 82607; 82746; 82805; 83690; 84484; 85025; 85060; 85610; 85730; 86850; 86900; 86901; 92950; 92977; 93005; 93010; 93454; 94760; C1769; C9113; J0171; J1644; J1940; J2250; J2704; J3246; J7050; J7070; P9016; Q9967